=== PATIENT | female | born 1995 | race Caucasian/White ===

== ENCOUNTER 2016-03-29 20:13 | Emergency (ER) | payer OTHER ==
[~2016-03-29] VITALS: Ht 162.6 cm; Wt 88.2 kg
[~2016-03-29 20:13] MED LIST: ALBUAER2 INH; OXYC-57 PO
[2016-03-29 20:16] VITALS: TEMP 36.4; Ht 162.6 cm; Wt 88.2 kg
[2016-03-29 21:00] LABS: BASO % 0.3 %; BASO ABS # 0.02 K/uL (0-0.2); COMPLETE YES; EOS % 1.4 %; HEMATOCRIT 38.9 % (37-47); IG% 0.3 %; LYMPH ABS # 1.95 K/uL (1.2-3.4); MEAN CELL VOLUME 86.4 fL (80-100); MEAN CORPUSCULAR HEMOGLOBIN 30.2 pg (25-34); MEAN PLATELET VOLUME 10.3 fL (7.4-10.4); MONO % 9.6 %; NEUT % 61.4 %; PLATELET COUNT 193 K/uL (130-400); WHITE BLOOD COUNT 7.21 K/uL (4.8-10.8)
[2016-03-29 21:36] LABS: BUN/CREATININE RATIO 12.5 (10-20); CALCIUM 8.7 mg/dl (8.5-10.1); CREATININE 0.91 mg/dl (0.60-1.20); POTASSIUM 3.6 mmol/L (3.5-5.1)
--- NOTE | 2016-03-29 21:48 | DIAGNOSTIC IMAGING REPORT ---
FIRST TRIMESTER ULTRASOUND CLINICAL HISTORY: 8 weeks with vaginal bleeding. COMPARISON STUDY: No previous studies for comparison. TECHNIQUE: Transabdominal and transvaginal sonography of the pelvis was performed. FINDINGS: The uterus measures 9.7 x 5.5 x 7 cm. An intrauterine gestational sac is noted with a mean sac diameter of 1.7 cm. There is possible enlargement of the yolk sac. A suspected pole is noted with a crown-rump length of 0.63 cm. No cardiac activity is identified. The right ovary measures 3.4 x 2.3 x 1.5 cm and the left measures 2.6 x 2.7 x 2.2 cm. Color flow is identified within each ovary. There is no free fluid. There was no adnexal mass. IMPRESSION: Intrauterine gestational sac identified containing a suspected pole with a crown-rump length of 0.63 cm corresponding to an estimated gestational age of 6 weeks and 2 days. No cardiac activity identified although this finding is indeterminate at this gestational age and this could be due to a normal early intrauterine gestation. Possible yolk sac enlargement. Clinical follow-up, including serial beta hCG levels and ultrasound is recommended. Electronically signed by: Power Dickens M.D. 03/29/2016 9:46 PM Dictated Date/Time: 03/29/2016 9:40 PM
[2016-03-29 22:18] VITALS: BP 104/74; PULSE 74; O2SAT 100
--- NOTE | 2016-03-29 23:15 | EMERGENCY ROOM VISIT NOTE ---
History Report prepared by Sarita: Elly Pitts Under the Supervision of: Dr. Prakash Soliman M.D. First contact with patient: 20:24 Chief Complaint: VAGINAL BLEEDING Stated Complaint: POSSIBLY ,VAG BLEED History of Present Illness The patient is a 21 year old female who presents to the Emergency Room with complaints of worsening vaginal bleeding. She is currently with her second . She reports 6 days ago, she took a home test and it was positive. Earlier today, she started experiencing "spotting" which has worsened to now resembles a "full blown period". She also complains of some crampy abdominal pain and has vomited twice. She does state that she did vomit with her prior although not significantly so. The patient denies any history of PID or previous miscarriages. She does not take oral contraceptives. She denies any dysuria. She is not completely sure about her blood type. Source of History: patient Onset: Earlier today Position: other (vagina) Timing: worsening Associated Symptoms: + abdominal pain, + nausea, + vomiting, No urinary symptoms Review of Systems See HPI for pertinent positives & negatives. A total of 10 systems reviewed and were otherwise negative. Family History Diabetes mellitus Hypertension Social History Smoking Status: Never Smoker Alcohol Use: none Drug Use: none Marital Status: single Housing Status: lives with roommate Occupation Status: [employer] Current/Historical Medications Scheduled PRN Albuterol (Ventolin Hfa), 2 PUFFS INH QID PRN for SOB/Wheezing Oxycodone/Acetaminophen 5MG/325MG (Percocet 5MG/325MG), 1-2 TABS PO Q6H PRN for Pain Allergies Coded Allergies: Hydrocodone (Unverified Allergy, Mild, MOM'S ALLERGIC, 03/29/16) Ibuprofen (Verified Allergy, Mild, shacky, 03/29/16) Physical Exam Vital Signs Date Time Temp Pulse Resp B/P Pulse Ox O2 Delivery O2 Flow Rate FiO2 03/29/16 22:18 74 20 104/74 100 Room Air 03/29/16 20:16 36.4 57 18 113/72 96 Room Air Physical Exam Constitutional: Vital signs reviewed. Eyes: Pupils are equal round reactive to light. Conjunctiva are noninjected. ENT: Pharynx is clear without erythema or exudate. Mucous membranes are moist. Neck supple without meningeal signs. Respiratory: Clear to auscultation bilaterally. Breath sounds are equal bilaterally. Cardiovascular: Regular rate and rhythm. No rubs or gallops. GI: Soft, nondistended and nontender. Bowel sounds are present. Musculoskeletal: No peripheral edema. Integumentary: No cyanosis. Neurological: The patient is awake and alert. No focal deficits. Psychiatric: Normal affect. Medical Decision & Procedures ER Provider Diagnostic Interpretation: This ultrasound was reviewed and interpreted by the radiologist and reviewed by myself. FIRST TRIMESTER ULTRASOUND CLINICAL HISTORY: 8 weeks with vaginal bleeding. COMPARISON STUDY: No previous studies for comparison. TECHNIQUE: Transabdominal and transvaginal sonography of the pelvis was performed. FINDINGS: The uterus measures 9.7 x 5.5 x 7 cm. An intrauterine gestational sac is noted with a mean sac diameter of 1.7 cm. There is possible enlargement of the yolk sac. A suspected pole is noted with a crown-rump length of 0.63 cm. No cardiac activity is identified. The right ovary measures 3.4 x 2.3 x 1.5 cm and the left measures 2.6 x 2.7 x 2.2 cm. Color flow is identified within each ovary. There is no free fluid. There was no adnexal mass. IMPRESSION: Intrauterine gestational sac identified containing a suspected pole with a crown-rump length of 0.63 cm corresponding to an estimated gestational age of 6 weeks and 2 days. No cardiac activity identified although this finding is indeterminate at this gestational age and this could be due to a normal early intrauterine gestation. Possible yolk sac enlargement. Clinical follow-up, including serial beta hCG levels and ultrasound is recommended. Electronically signed by: Power Dickens M.D. 03/29/2016 9:46 PM Laboratory Results 03/29/16 20:50 Red Blood Count 4.50, Mean Corpuscular Volume 86.4, Mean Corpuscular Hemoglobin 30.2, Mean Corpuscular Hemoglobin Concent 35.0, Mean Platelet Volume 10.3, Neutrophils (%) (Auto) 61.4, Lymphocytes (%) (Auto) 27.0, Monocytes (%) (Auto) 9.6, Eosinophils (%) (Auto) 1.4, Basophils (%) (Auto) 0.3, Neutrophils # (Auto) 4.43, Lymphocytes # (Auto) 1.95, Monocytes # (Auto) 0.69, Eosinophils # (Auto) 0.10, Basophils # (Auto) 0.02 03/29/16 20:50 Test 03/29/16 20:50 White Blood Count 7.21 K/uL (4.8-10.8) Red Blood Count 4.50 M/uL (4.2-5.4) Hemoglobin 13.6 g/dL (12.0-16.0) Hematocrit 38.9 % (37-47) Mean Corpuscular Volume 86.4 fL (80-100) Mean Corpuscular Hemoglobin 30.2 pg (25-34) Mean Corpuscular Hemoglobin Concent 35.0 g/dl (32-36) Platelet Count 193 K/uL (130-400) Mean Platelet Volume 10.3 fL (7.4-10.4) Neutrophils (%) (Auto) 61.4 % Lymphocytes (%) (Auto) 27.0 % Monocytes (%) (Auto) 9.6 % Eosinophils (%) (Auto) 1.4 % Basophils (%) (Auto) 0.3 % Neutrophils # (Auto) 4.43 K/uL (1.4-6.5) Lymphocytes # (Auto) 1.95 K/uL (1.2-3.4) Monocytes # (Auto) 0.69 K/uL (0.11-0.59) Eosinophils # (Auto) 0.10 K/uL (0-0.5) Basophils # (Auto) 0.02 K/uL (0-0.2) RDW Standard Deviation 38.9 fL (36.4-46.3) RDW Coefficient of Variation 12.3 % (11.5-14.5) Immature Granulocyte % (Auto) 0.3 % Immature Granulocyte # (Auto) 0.02 K/uL (0.00-0.02) Anion Gap 9.0 mmol/L (3-11) Est Creatinine Clear Calc Drug Dose 103.4 ml/min Estimated GFR () 103.1 Estimated GFR (Non- 88.9 BUN/Creatinine Ratio 12.5 (10-20) Calcium Level 8.7 mg/dl (8.5-10.1) Human Chorionic Gonadotropin, Quant 15242 mIU/mL Laboratory results as reviewed by me. ED Course 2026: The patient was evaluated in room C5. A complete history and physical exam was performed. 2205: I reevaluated the patient. I discussed her test results and discharge instructions and she verbalized complete understanding and agreement. Medical Decision This is a 21-year-old female presents with vaginal bleeding.differential diagnosis includes threatened miscarriage, completed miscarriage, ectopic , early , uterine fibroid. I did perform a limited focused review of portions of the patient's old chart on the electronic medical record. The patient has had no recent pertinent visits to this hospital. Her blood type was identified as O+ by Dr. Camejo when she gave in June 2014. I did evaluate the patient as noted above. The patient is presenting with vaginal bleeding today. She is approximately 6 weeks by date. She denies any history of ectopic or PID. IV access was established. I did order and review the patient's blood work as noted in the electronic medical record. She is not anemic. Her beta-hCG is over 14,000. I did order an ultrasound pelvis. I did review the images myself as well as the radiology report as described above. A pole was identified. There is no evidence of ectopic . No heart rate was observed. I did discuss the test results with the patient and her . I did explain that she may simply have a very early versus a miscarriage. She will need to follow up with [facility] next week. She does not require RhoGAM as she is O+. She was discharged in condition. Impression Primary Impression: Threatened miscarriage Scribe Attestation The scribe's documentation has been prepared under my direct and personally reviewed by me in its entirety. I confirm that the note above accurately reflects all work, treatment, procedures, and medical decision making performed by me. Departure Information Dispostion Home / Self-Care Referrals No Doctor, Assigned (PCP) Patient Instructions ED Miscarriage Poss, My [facility] Additional Instructions You have been examined and treated today on an emergency basis only. This is not a substitute for, or an effort to provide, complete comprehensive medical care. It is impossible to recognize and treat all injuries or illnesses in a single emergency department visit. It is therefore important that you follow up closely with your senior telecommunications specialist next week. Call as soon as possible for an appointment. Return for worsening symptoms or if you develop fever or any other concerning symptoms. No intercourse. No tampons.
[2016-03-30] MEDS ORDERED: PRVHFAIN INH (22:22)
[2016-03-31] MEDS ORDERED: MTR600X PO (05:36)
== END 2016-03-29 22:21 | disposition home or self-care (01) ==
LOC: C.EDB 20:13 → C.EDC 22:21
DX: O20.0 Threatened abortion (principal); Z3A.01 Less than 8 weeks gestation of pregnancy

== ENCOUNTER 2016-03-30 22:01 | Day surgery (SDC) | payer OTHER ==
[~2016-03-30] VITALS: Ht 162.6 cm; Wt 88.0 kg
[~2016-03-30 22:01] MED LIST changes: -ALBUAER2 INH
[2016-03-30 22:04] VITALS: Ht 162.6 cm; Wt 88.0 kg
[2016-03-30] MEDS ORDERED: PRVHFAIN INH (22:22)
[2016-03-30] MEDS ORDERED: SODIUM CHLORIDE 0.9% 1000ML 1,000 ML IV ONE (22:45)
[2016-03-30 23:16] LABS: HEMATOCRIT 31.8 % (37-47); MEAN CELL VOLUME 86.4 fL (80-100); MEAN CORPUSCULAR HEMOGLOBIN 30.7 pg (25-34); MEAN CORPUSCULAR HGB CONC 35.5 g/dl (32-36); MEAN PLATELET VOLUME 10.1 fL (7.4-10.4); PLATELET COUNT 179 K/uL (130-400); RED BLOOD COUNT 3.68 M/uL (4.2-5.4); WHITE BLOOD COUNT 8.88 K/uL (4.8-10.8)
[2016-03-30 23:35] LABS: BUN/CREATININE RATIO 10.2 (10-20); CALCIUM 8.2 mg/dl (8.5-10.1); CREATININE 0.92 mg/dl (0.60-1.20); POTASSIUM 3.8 mmol/L (3.5-5.1)
[2016-03-30 23:37] LABS: ALB/GLOB RATIO 1.4 (0.9-2)
[2016-03-31 00:08] LABS: BASO % 0.2 %; BASO ABS # 0.02 K/uL (0-0.2); COMPLETE YES; EOS % 0.9 %; IG% 0.1 %; LYMPH % 13.7 %; LYMPH ABS # 1.22 K/uL (1.2-3.4); MONO % 6.4 %; NEUT % 78.7 %
[2016-03-31 02:27] LABS: HEMATOCRIT 30.2 % (37-47); MEAN CORPUSCULAR HEMOGLOBIN 30.5 pg (25-34); MEAN CORPUSCULAR HGB CONC 35.1 g/dl (32-36); MEAN PLATELET VOLUME 10.3 fL (7.4-10.4); PLATELET COUNT 183 K/uL (130-400); RED BLOOD COUNT 3.47 M/uL (4.2-5.4); WHITE BLOOD COUNT 9.09 K/uL (4.8-10.8)
[2016-03-31] MEDS ORDERED: LACTATED RINGER'S 1000ML 1,000 ML IV SCH (04:03)
[2016-03-31] MEDS ORDERED: SODIUM CHLORIDE 0.9% 1000ML 1,000 ML IV SCH ×2 (04:03→05:32)
[2016-03-31 04:07] VITALS: O2SAT 100
[2016-03-31] MEDS ORDERED: PROPOFOL IV EMULSION 10 MG/ML 20 ML VIAL IV ONE (04:15)
[2016-03-31] MEDS ORDERED: ONDANSETRON INJ 2 MG/ML 2 ML VIAL ONE (04:15)
[2016-03-31] MEDS ORDERED: LIDOCAINE HCL 2% 2 ML VIAL (20MG/ML) ONE (04:15)
[2016-03-31] MEDS ORDERED: FENTANYL CITRATE INJ 50 MCG/1 ML 2 ML VIAL ONE (04:15)
[2016-03-31] MEDS ORDERED: DEXAMETHASONE SOD INJ 4 MG/ML VIAL ONE (04:15)
[2016-03-31] MEDS ORDERED: MIDAZOLAM HCL 1 MG/ML 2ML VIAL ONE (04:15)
[2016-03-31] MEDS ORDERED: LACTATED RINGER'S 1000ML 1,000 ML IV PRN (04:30)
[2016-03-31] MEDS ORDERED: METOCLOPRAMIDE HCL INJ 5 MG/ML 2 ML VIAL IV PRN ×2 (04:30→05:45)
[2016-03-31] MEDS ORDERED: DiphenhydrAMINE HCL 50 MG/ML VIAL IV PRN (04:30)
--- NOTE | 2016-03-31 04:41 | History & Physical Bridge Note ---
H&P Re-Evaluation Bridge Note: I have examined the patient, reviewed the History & Physical and in the interval since the performance of the History & Physical I have noted the following changes of clinical significance: No changes noted
[2016-03-31] MEDS ORDERED: MISOPROSTOL 200 MCG TAB PR STA (04:46)
[2016-03-31] MEDS ORDERED: KETOROLAC TROMETHAMINE 30 MG/ML VIAL ONE (05:07)
[2016-03-31] MEDS ORDERED: MTR600X PO (05:36)
--- NOTE | 2016-03-31 05:37 | Discharge Instructions ---
Discharge Instructions Admission Reason for Admission: Bleeding A Lot, Stomach And Back Pain Discharge Discharge Diagnosis / Problem: incomplete at 8 weeks Discharge Goals Goal(s): Routine recovery after surgery Activity Recommendations Activity Limitations: as noted below Lifting Limitations: gradually increase as tolerated ACTIVITY RECOMMENDATIONS: * Avoid tampons, douching, hot tubs, pools, and intercourse until bleeding has stopped. * May shower as usual. * No strenuous activity for 24-48 hours. After 24-48 hours, you may do anything you feel like doing (driving and sports are okay). SPECIAL CARE INSTRUCTIONS: Special Diet: * Mild nausea may occur in the immediate post-operative period. * Take clear liquids such as tea, cola or bouillon until all nausea has subsided; you may then resume your normal diet. Special Care: * Light bleeding and vaginal spotting can last from a few days to 3-4 weeks. Call your doctor if bleeding becomes heavier than the heaviest part of your period. * Check your temperature twice a day for one week. If it goes above 100.4 degrees Fahrenheit (38.0 Celsius), notify your doctor. * Call your doctor's office for an appointment for 6 weeks after your surgery. FOLLOW-UP VISIT: Call your doctor's office for an appointment for 6 weeks after your surgery. . Current Hospital Diet Patient's current hospital diet: Discharge Diet Recommended Diet: Regular Diet Pending Studies Studies pending at discharge: no Medical Emergencies . Who to Call and When: Medical Emergencies: If at any time you feel your situation is an emergency, please call 911 immediately. . Non-Emergent Contact Non-Emergency issues call your: Specialist . . "Provider Documentation" section prepared by Carlos Sandoval. VTE Core Measure Inpt VTE Proph given/why not?: Treatment not indicated
[2016-03-31] MEDS ORDERED: ONDANSETRON INJ 2 MG/ML 2 ML VIAL IV PRN (05:45)
[2016-03-31] MEDS ORDERED: OXYCODONE/ACETAMINOPHEN 5-325 TAB PO PRN ×2 (05:45)
[2016-03-31] MEDS: FENTANYL CITRATE INJ 50 MCG/1 ML 2 ML VIAL IV PRN ×4 (05:45→06:00)
[2016-03-31] MEDS ORDERED: KETOROLAC TROMETHAMINE 30 MG/ML VIAL IV. PRN (05:45)
[2016-03-31] MEDS ORDERED: IBUPROFEN 600 MG TAB PO PRN (05:45)
--- NOTE | 2016-03-31 05:45 | [facility] Post Operative Brief Note ---
Immediate Operative Summary Operative Date Mar 31, 2016. Pre-Operative Diagnosis incomplete Post-Operative Diagnosis same Procedure(s) Performed examination under anesthesia dilation and evacuation of uterus Surgeon segun Director Of Finance Surgeon(s) none Estimated Blood Loss 50 Findings dictated Fluids (cc crystalloids) 800 Specimens products of conception Drains none Anesthesia genral Complication(s) None Disposition Surgical ICU
--- NOTE | 2016-03-31 05:45 | HISTORY & PHYSICAL EXAMINATION ---
DATE OF ADMISSION: 03/30/2016 HISTORY OF PRESENT ILLNESS: The patient is a 21-year-old, G2, P1, who is six weeks' as of yesterday. She was seen in the Emergency Room for bleeding. Diagnosis on that visit was incomplete AB. She was sent home with instructions. The patient returned today to the Emergency Room with worsening bleeding. In the Emergency Room, she was seen and evaluated. A repeat ultrasound was performed which showed gestational sac in the lower uterine segment. The patient's bleeding however has been heavy. She was getting ready for discharge. She went to the bathroom and became lightheaded. She since had some orthostatic hypotension with some syncopal episodes. GRAIN MANAGER was there for call. On evaluation of patient, the patient has had hemoglobin drop of 3 points in the last 24 hours, her blood pressure has also been in the low range, in the 70s/60s on standing. She does get very lightheaded and dizzy when she tries to stand. Speculum exam showed moderate amount of blood in the vagina. Decision was therefore made to take patient to the OR and perform a dilation and evacuation. PAST MEDICAL HISTORY: No history of diabetes, hypertension or asthma. PAST SURGICAL HISTORY: None. SOCIAL HISTORY: The patient denies tobacco, drug or alcohol use. FAMILY HISTORY: Noncontributory. OBSTETRIC/GYNECOLOGIC HISTORY: Vaginal delivery x1. PHYSICAL EXAMINATION: GENERAL: Well-developed, well-nourished white female in no acute distress. HEART: S1, S2, regular rhythm and rate. LUNGS: Clear to auscultation bilaterally. ABDOMEN: Nontender and nondistended. PELVIC: Moderate amount of blood in the vagina. ASSESSMENT AND PLAN: Incomplete at 6 weeks' plus. The patient has had some syncope and hypotension on standing. Decision was therefore made to perform dilation and evacuation of uterus. The patient has agreed, discussed risks of surgery versus expectant management. Consent is signed. Plan is to proceed to the OR. BOB
--- NOTE | 2016-03-31 06:04 | Anesthesiology Progress Note ---
Anesthesia Post Op Note Date & Time Mar 31, 2016 at 06:02 Vital Signs Pain Intensity: 3 Vital Signs Past 12 Hours Date Time Temp Pulse Resp B/P Pulse Ox O2 Delivery O2 Flow Rate FiO2 03/31/16 06:00 72 14 116/45 100 Room Air 03/31/16 05:50 64 14 107/51 100 Mask 10 03/31/16 05:40 85 14 101/49 100 Mask 10 03/31/16 05:31 36.3 87 14 110/59 100 Mask 10 03/31/16 04:07 94 18 111/58 100 Room Air 03/31/16 02:00 68 18 111/67 79/31 120/111 03/31/16 01:49 65 18 107/53 98 03/31/16 01:12 68 18 106/51 100 Room Air 03/31/16 00:50 68 03/31/16 00:41 67 18 84/42 97 Room Air 03/30/16 22:04 36.6 104 18 122/73 98 Room Air Notes Mental Status: alert / awake / arousable, participated in evaluation Pt Amnestic to Procedure: Yes Nausea / Vomiting: adequately controlled Pain: adequately controlled Airway Patency, RR, SpO2: stable & adequate BP & HR: stable & adequate Hydration State: stable & adequate Anesthetic Complications: no major complications apparent Pt doing very well. Of note, Dr. Sandoval dictated an H&P. It was not yet in the computer, so the DOMESTIC MAID called to have it transcribed stat. Due to the urgent nature of the procure (symptomatic bleeding), we elected to proceed to the OR.
--- NOTE | 2016-03-31 06:09 | OPERATIVE REPORT ---
DATE OF OPERATION: 03/31/2016 INDICATION FOR PROCEDURE: This is a 21-year-old at 8 weeks gestation, who is experiencing heavy bleeding. PREOPERATIVE DIAGNOSES: 1. at 8 weeks. 2. Incomplete spontaneous . POSTOPERATIVE DIAGNOSES: Same. PROCEDURES: 1. Examination under anesthesia. 2. Dilation and evacuation of uterus with suction. SURGEON: Carlos Sandoval M.D. DIRECTOR OF MARKET RESEARCH: None. ANESTHESIA: Dr. Mejia. ESTIMATED BLOOD LOSS: 50 mL. URINE: 400 mL clear urine at the end of the procedure. IV FLUIDS: 700 mL. FINDINGS: Normal female escutcheon. No lesions in the vagina or cervix. There was a moderate amount of blood in the vagina. Moderate amount of tissue was evacuated from the uterus. SPECIMEN: Products of conception. DRAINS: None. ANESTHESIA: General. COMPLICATIONS: None. DISPOSITION: Stable to recovery room. DESCRIPTION OF PROCEDURE: The patient was taken to the operating room where she was prepped and draped in normal sterile fashion in dorsal lithotomy position after time-out was called. Bladder was catheterized and 400 mL of clear urine was obtained. Heavy weighted speculum was placed in the vagina. A Damon retractor was used to retract the anterior part of the vagina. A single-tooth tenaculum was used to grab the anterior part of the cervix. Cervix was dilated to a size 24. A size 8 curved suction was introduced into the uterine cavity and suction curettage performed. Moderate amount of products was seen coming through the suction. The suction was removed and a sharp curette size 3 gently introduced in the uterine cavity. Curettage was performed in all 4 quadrants with a gritty texture was obtained in all 4 quadrants. The sharp curette was removed and the suction curette was reintroduced in the uterine cavity, more suction was performed. There were no more products of conception coming through the suction. There was good hemostasis at this time in the procedure. All instruments were removed from the vagina and uterus including the sharp curette, the suction, the single-tooth tenaculum and sponges and accounted for x2. The patient is doing well and sent to recovery in stable condition. I attest to the content of the Intraoperative Record and any orders documented therein. Any exceptions are noted below. BOB
[2016-03-31 06:11] VITALS: BP 118/68; PULSE 78; TEMP 36.5; O2SAT 100
--- NOTE | 2016-03-31 06:12 | EMERGENCY ROOM VISIT NOTE ---
History First contact with patient: 22:21 Chief Complaint: ED VAG BLEEDING Stated Complaint: BLEEDING A LOT, STOMACH AND BACK PAIN History of Present Illness The patient is a 21 year old female who presents to the Emergency Room with complaints of worsening vaginal bleeding over the past one day. The patient was initially seen and evaluated in the ER yesterday for this complaint. Her hCG quantitative was roughly 14,000 and ultrasound did show an intrauterine gestation. No heart activity was noted on ultrasound yesterday. The patient states that she was feeling well at the time of discharge yesterday, however over the past 12 hours she has had worsening bleeding. She states that she is passing larger clots and yesterday. She has had to change her pad several times today. The patient states that she had a near syncopal episode at home about 30 minutes ago where she felt very lightheaded. She was able to sit down and stop her symptoms. She now presents to the ER for evaluation again of her symptoms. She has not had fever or chills. She has not taken anything at home for her symptoms which she currently rates a 9/10. Review of Systems More than 10 systems were reviewed and otherwise negative with the exception of history of present illness. Past Medical/Surgical History History of asthma Family History Diabetes mellitus Hypertension Social History Smoking Status: Never Smoker Alcohol Use: none Drug Use: none Marital Status: single Housing Status: lives with roommate Occupation Status: [employer] Current/Historical Medications Scheduled PRN Albuterol (Ventolin Hfa), 2 PUFFS INH QID PRN for SOB/Wheezing Allergies Coded Allergies: Hydrocodone (Unverified Allergy, Mild, MOM'S ALLERGIC, 03/29/16) Ibuprofen (Verified Allergy, Mild, shacky, 03/29/16) Physical Exam Vital Signs Date Time Temp Pulse Resp B/P Pulse Ox O2 Delivery O2 Flow Rate FiO2 03/31/16 04:07 94 18 111/58 100 Room Air 03/31/16 02:00 68 18 111/67 79/31 120/111 03/31/16 01:49 65 18 107/53 98 03/31/16 01:12 68 18 106/51 100 Room Air 03/31/16 00:50 68 03/31/16 00:41 67 18 84/42 97 Room Air 03/30/16 22:04 36.6 104 18 122/73 98 Room Air Pain Rating (0-10): 0 Physical Exam VITALS: Vitals are noted on the nurse's note and reviewed by myself. Vital signs stable. GENERAL: Well-developed, well-nourished, white female, who is in no acute distress and resting comfortably. Patient is cooperative with the examination. HEAD: Normocephalic atraumatic. HEART: Regular rate and rhythm without murmurs gallops or rubs. LUNGS: Clear to auscultation bilaterally without wheezes, rales or rhonchi. No retractions or accessory muscle use. ABDOMEN: Positive normal bowel sounds x 4. Soft, nontender, without masses or organomegaly. No guarding or rebound tenderness. MUSCULOSKELETAL: No muscle atrophy, erythema, or edema noted. Full range of motion without joint tenderness in all extremities. Medical Decision & Procedures ER Provider Diagnostic Interpretation: Preliminary Findings Only See Final Report For Complete Findings US PELVIC/OB: Comparison 03/29/2016 Patient declined transvaginal imaging The saclike structure is now seen in the lower uterine segment/endocervical canal measuring up to 1.6 cm concerning for AB in progress. No pole identified at this time. Heterogeneous appearing endometrial stripe suggesting possible blood products Ovaries appear within limits No evidence of adnexal mass Laboratory Results 03/31/16 02:21 03/30/16 23:05 Test 03/30/16 23:05 03/31/16 02:21 Immature Granulocyte % (Auto) 0.1 % White Blood Count 8.88 K/uL (4.8-10.8) Red Blood Count 3.68 M/uL (4.2-5.4) 3.47 M/uL (4.2-5.4) Hemoglobin 11.3 g/dL (12.0-16.0) Hematocrit 31.8 % (37-47) Mean Corpuscular Volume 86.4 fL (80-100) 87.0 fL (80-100) Mean Corpuscular Hemoglobin 30.7 pg (25-34) 30.5 pg (25-34) Mean Corpuscular Hemoglobin Concent 35.5 g/dl (32-36) 35.1 g/dl (32-36) Platelet Count 179 K/uL (130-400) Mean Platelet Volume 10.1 fL (7.4-10.4) 10.3 fL (7.4-10.4) Neutrophils (%) (Auto) 78.7 % Lymphocytes (%) (Auto) 13.7 % Monocytes (%) (Auto) 6.4 % Eosinophils (%) (Auto) 0.9 % Basophils (%) (Auto) 0.2 % Neutrophils # (Auto) 6.98 K/uL (1.4-6.5) Lymphocytes # (Auto) 1.22 K/uL (1.2-3.4) Monocytes # (Auto) 0.57 K/uL (0.11-0.59) Eosinophils # (Auto) 0.08 K/uL (0-0.5) Basophils # (Auto) 0.02 K/uL (0-0.2) Immature Granulocyte # (Auto) 0.01 K/uL (0.00-0.02) Anion Gap 9.0 mmol/L (3-11) Est Creatinine Clear Calc Drug Dose 102.2 ml/min Estimated GFR () 101.7 Estimated GFR (Non- 87.8 BUN/Creatinine Ratio 10.2 (10-20) Calcium Level 8.2 mg/dl (8.5-10.1) Total Bilirubin 0.3 mg/dl (0.2-1) Aspartate Amino Transf (AST/SGOT) 11 U/L (15-37) Alanine Aminotransferase (ALT/SGPT) 16 U/L (12-78) Alkaline Phosphatase 54 U/L (45-117) Total Protein 6.3 gm/dl (6.4-8.2) Albumin 3.7 gm/dl (3.4-5.0) Globulin 2.6 gm/dl (2.5-4.0) Albumin/Globulin Ratio 1.4 (0.9-2) Human Chorionic Gonadotropin, Quant 6985 mIU/mL RDW Standard Deviation 38.9 fL (36.4-46.3) RDW Coefficient of Variation 12.4 % (11.5-14.5) Medications Administered Medications (Trade) Dose Ordered Sig/Shanel Route Start Time Stop Time Status Last Admin Dose Admin Sodium Chloride (Nss 1000ml) 1,000 ml @ 999 mls/hr Q1H1M ONCE IV 03/30/16 22:45 03/30/16 23:45 DC 03/30/16 23:05 999 MLS/HR ED Course Physical exam and history were performed. Nursing notes and EMR were reviewed. Patient appears to have persistent vaginal bleeding in the first trimester of . The patient reportedly is worse today than yesterday. On examination she does not appear toxic and does not have significant abdominal pain on palpation. Because of the continued nature of her symptoms IV access was established and labs were obtained. I did elect to perform a repeat ultrasound as I have concern the patient may have a miscarriage in process. The patient's blood work is as above and was reviewed. Her hemoglobin has dropped from 13.6 yesterday to 11.3 today. She does not have a significant electrolyte imbalance or elevated white blood cell count. Her quantitative hCG has dropped from 14,000 to essentially 7000. Her ultrasound was read by Kyung , and she appears to have an incomplete . The patient was monitored for several hours here in the emergency department. She stated that she was feeling well, and was initially felt stable for discharge. Discharge paperwork was completed, however the patient became lightheaded when she stood up to use the bathroom. The patient was able to use the bathroom without a full syncopal episode, and then sit back in her bed. We monitored her for another 45 minutes, and hydrated her by mouth as we had discontinued her IV. She again stated that she felt well for discharge home. The patient again stood from her bed and was only able to ambulate a few feet, before she had another near syncopal episode. At this point a second IV was placed and the patient was returned to her room. She was found hypotensive, and was now much more pale than she was on original presentation. A repeat hemoglobin was performed, and showed another drop in her hemoglobin. Orthostatics were performed, and she was orthostatic and quite symptomatic. Because of the patient's worsening symptomatic nature, I did speak with [employer] Dr Sandoval who agreed to evaluate the patient here in the emergency department. Dr Sandoval will take the patient to the OR for definitive care. Please see his dictation for full specifics regarding his evaluation. The patient was pleased with this plan and was discharged to the operating room suite. The chart was completed utilizing [employer] Voice Recognition Software. Grammatical errors, random word insertions, pronoun errors, and incomplete sentences are an occasional consequence of this system due to software limitations, ambient noise, and hardware issues. Any formal questions or concerns about the content, text, or information contained within the body of this dictation should be directly addressed to the provider for clarification. . Medical Decision Differential diagnosis: Etiologies such as ectopic , dysfunction uterine bleeding, bleeding dyscrasia, trauma, infection, as well as others were entertained. Impression Primary Impression: Incomplete miscarriage Additional Impression: Near syncope Departure Information Dispostion Admitted as an inpatient Condition GOOD Forms HOME CARE DOCUMENTATION FORM, IMPORTANT VISIT INFORMATION Patient Instructions [facility] Problem Qualifiers
[2016-03-31 07:00] VITALS: BP 112/60; PULSE 80; TEMP 36.5; O2SAT 100
--- NOTE | 2016-03-31 07:05 | DIAGNOSTIC IMAGING REPORT ---
PELVIC ULTRASOUND CLINICAL HISTORY: Persistent vaginal bleed in 6wk COMPARISON STUDY: ultrasound March 29, 2016. TECHNIQUE: Transabdominal sonography of the pelvis was performed. Transvaginal imaging was deferred in this patient. FINDINGS: The uterus measures 10.3 x 5.1 x 6.2 cm. The endometrium is heterogeneous, measuring 7 mm in thickness. There is a cystic structure now within the lower uterine segment measuring 1.6 x 1.4 x 1.3 cm. The appearance has changed since exam of March 29, 2016. No pole is identified on this examination. The right ovary measures 3.1 x 2.2 x 1.6 cm and left measures 3.1 x 1.9 x 2.2 cm. There are SPECT blood products within the cervix. The cervix appears open. IMPRESSION: 1. 1.6 cm cystic structure now within the lower uterine segment with interval change since exam of March 29, 2016. No pole identified. The findings suggest a spontaneous in progress. 2. Heterogeneous endometrium and complex material within the cervix which likely reflect blood products. Electronically signed by: Power Dickens M.D. 03/31/2016 7:03 AM Dictated Date/Time: 03/31/2016 6:59 AM
== END 2016-03-31 | disposition home or self-care (01) ==
LOC: C.EDB 22:03 → C.ACU 03-31 04:00 → C.EDB 03-31 04:30
PROVIDERS: ATTEND Obstetrics & Gynecology
DX: O03.4 Incomplete spontaneous abortion without complication (principal); R55 Syncope and collapse; J45.909 Unspecified asthma, uncomplicated; Z98.890 Other specified postprocedural states; E66.9 Obesity, unspecified; Z68.33 Body mass index [BMI] 33.0-33.9, adult; Z83.3 Family history of diabetes mellitus; Z82.49 Family history of ischemic heart disease and other diseases of the circulatory system

== ENCOUNTER 2016-09-13 23:37 | Emergency (ER) | payer OTHER ==
[~2016-09-13] VITALS: Ht 162.6 cm; Wt 89.4 kg
[~2016-09-13 23:37] MED LIST changes: +MTR600X PO; -OXYC-57 PO; +PRVHFAIN INH
[2016-09-13 23:40] VITALS: TEMP 36.5; Ht 162.6 cm; Wt 89.4 kg
--- NOTE | 2016-09-14 00:02 | EMERGENCY ROOM VISIT NOTE ---
History Report prepared by Sarita: Kobe Blanco Under the Supervision of: Dr. Veronique Wilson D.O. First contact with patient: 23:46 Chief Complaint: ABDOMINAL PAIN Stated Complaint: BAD STOMACH PAIN,SHARP History of Present Illness The patient is a 21 year old female who presents to the Emergency Room with complaints of constant sharp lower abdominal pain that started at 1430 today. She rates her pain as a 5/10 in severity. The patient states that she was moving out of her house a week ago when she started to experience to feel a "hard feeling" and "fluttering" sensation in her abdomen. She reports that she has been experiencing nausea, fatigue, and general soreness since. The patient states that she was concerned for , which prompted her to take two tests that showed negative results. She admits to an odor to her urine and states that she had a burning sensation in her genital area earlier this week. No vaginal discharge reported. The patient states that she followed up with her PCP for her symptoms who told her it was due to a sensitivity of detergents. She admits to an occurrence of a miscarriage that occurred in March. The patient denies any change in diet or medication, change in bowel movements, vomiting, cough, cold symptoms, being around someone sick, back pain. Source of History: patient Onset: 1430 Position: abdomen Symptom Intensity: 5/10 Quality: sharp Timing: constant Associated Symptoms: + nausea, + urinary symptoms, + fatigue, No cough, No vomiting, No back pain Review of Systems See HPI for pertinent positives & negatives. A total of 10 systems reviewed and were otherwise negative. Past Medical & Surgical Medical Problems: (1) Asthma (2) Bronchitis (3) Emphysema of lung Family History Diabetes mellitus Hypertension Social History Smoking Status: Never Smoker Alcohol Use: none Drug Use: none Marital Status: single Housing Status: lives with roommate Occupation Status: [employer] student Current/Historical Medications Scheduled Cephalexin (Keflex), 1 CAP PO BID Allergies Coded Allergies: Hydrocodone (Unverified Allergy, Mild, MOM'S ALLERGIC, 09/14/16) Ibuprofen (Verified Allergy, Mild, shacky, 09/14/16) Physical Exam Vital Signs Date Time Temp Pulse Resp B/P (MAP) Pulse Ox O2 Delivery O2 Flow Rate FiO2 09/14/16 01:52 78 18 121/69 98 09/13/16 23:40 36.5 81 18 126/76 99 Room Air Physical Exam GENERAL: alert, well appearing, well nourished, no distress, non-toxic EYE EXAM: normal conjunctiva, PERRL and EOM's grossly intact OROPHARYNX: no exudate, no erythema, lips, buccal mucosa, and tongue normal and mucous membranes are moist NECK: supple, no nuchal rigidity, no adenopathy, non-tender LUNGS: Clear to auscultation. Normal chest wall mechanics HEART: no murmurs, S1 normal and S2 normal ABDOMEN: Abdominal tenderness not reproducible, abdomen soft, non-tender, normo- active bowel sounds, no masses, no rebound or guarding. BACK: Back is symmetrical on inspection and there is no deformity, no midline tenderness, no CVA tenderness. SKIN: no rashes and no bruising UPPER EXTREMITIES: upper extremities are grossly normal. LOWER EXTREMITIES: No pitting edema. NEURO EXAM: Normal sensorium, cranial nerves II-XII grossly intact, normal speech, no gross weakness of arms, no gross weakness of legs. No drift. Finger to nose intact. Gross sensation intact. Medical Decision & Procedures ER Provider Diagnostic Interpretation: Radiology results have been interpreted and reviewed by me. Chest Xray One View Upright Portable: No cardiomegaly, no pleural effusion, no wide medial sternum no focal deficit. Abdomen x-ray: No definitive SBO, No free air, scattered stool. Laboratory Results 09/14/16 00:05 Red Blood Count 4.52, Mean Corpuscular Volume 79.4, Mean Corpuscular Hemoglobin 25.4, Mean Corpuscular Hemoglobin Concent 32.0, Mean Platelet Volume 10.3, Neutrophils (%) (Auto) 60.4, Lymphocytes (%) (Auto) 28.6, Monocytes (%) (Auto) 9.5, Eosinophils (%) (Auto) 1.1, Basophils (%) (Auto) 0.3, Neutrophils # (Auto) 4.30, Lymphocytes # (Auto) 2.04, Monocytes # (Auto) 0.68, Eosinophils # (Auto) 0.08, Basophils # (Auto) 0.02 09/14/16 00:05 Test 09/13/16 23:58 09/14/16 00:05 Urine Color YELLOW Urine Appearance CLOUDY (CLEAR) Urine pH 6.5 (4.5-7.5) Urine Specific [place] 1.030 (1.000-1.030) Urine Protein NEG (NEG) Urine Glucose (UA) NEG (NEG) Urine Ketones NEG (NEG) Urine Occult Blood NEG (NEG) Urine Nitrite POS (NEG) Urine Bilirubin NEG (NEG) Urine Urobilinogen NEG (NEG) Urine Leukocyte Esterase SMALL (NEG) Urine WBC (Auto) 10-30 /hpf (0-5) Urine RBC (Auto) 0-4 /hpf (0-4) Urine Hyaline Casts (Auto) 1-5 /lpf (0-5) Urine Epithelial Cells (Auto) >30 /lpf (0-5) Urine Bacteria (Auto) 4+ (NEG) White Blood Count 7.13 K/uL (4.8-10.8) Red Blood Count 4.52 M/uL (4.2-5.4) Hemoglobin 11.5 g/dL (12.0-16.0) Hematocrit 35.9 % (37-47) Mean Corpuscular Volume 79.4 fL (80-100) Mean Corpuscular Hemoglobin 25.4 pg (25-34) Mean Corpuscular Hemoglobin Concent 32.0 g/dl (32-36) Platelet Count 190 K/uL (130-400) Mean Platelet Volume 10.3 fL (7.4-10.4) Neutrophils (%) (Auto) 60.4 % Lymphocytes (%) (Auto) 28.6 % Monocytes (%) (Auto) 9.5 % Eosinophils (%) (Auto) 1.1 % Basophils (%) (Auto) 0.3 % Neutrophils # (Auto) 4.30 K/uL (1.4-6.5) Lymphocytes # (Auto) 2.04 K/uL (1.2-3.4) Monocytes # (Auto) 0.68 K/uL (0.11-0.59) Eosinophils # (Auto) 0.08 K/uL (0-0.5) Basophils # (Auto) 0.02 K/uL (0-0.2) RDW Standard Deviation 47.5 fL (36.4-46.3) RDW Coefficient of Variation 16.4 % (11.5-14.5) Immature Granulocyte % (Auto) 0.1 % Immature Granulocyte # (Auto) 0.01 K/uL (0.00-0.02) Anion Gap 6.0 mmol/L (3-11) Est Creatinine Clear Calc Drug Dose 103.0 ml/min Estimated GFR () 101.7 Estimated GFR (Non- 87.8 BUN/Creatinine Ratio 15.6 (10-20) Calcium Level 8.8 mg/dl (8.5-10.1) Total Bilirubin 0.2 mg/dl (0.2-1) Aspartate Amino Transf (AST/SGOT) 12 U/L (15-37) Alanine Aminotransferase (ALT/SGPT) 20 U/L (12-78) Alkaline Phosphatase 79 U/L (45-117) Total Protein 6.8 gm/dl (6.4-8.2) Albumin 3.9 gm/dl (3.4-5.0) Globulin 2.9 gm/dl (2.5-4.0) Albumin/Globulin Ratio 1.3 (0.9-2) Lipase 121 U/L (73-393) Human Chorionic Gonadotropin, Qual NEG (NEG) Laboratory results per my review. Medications Administered Medications (Trade) Dose Ordered Sig/Shanel Route Start Time Stop Time Status Last Admin Dose Admin Cephalexin Monohydrate (Keflex Cap) 500 mg NOW ONCE PO 09/14/16 00:45 09/14/16 00:46 DC 09/14/16 00:59 500 MG Phenazopyridine HCl (Pyridium Tab) 200 mg NOW STAT PO 09/14/16 00:45 09/14/16 00:46 DC 09/14/16 01:00 200 MG ED Course 1151: The patient was evaluated in room A10. A complete history and physical exam was performed. 0045: Pyridium Tab 200 mg PO, Keflex Cap 500 mg PO. 0138: Upon reevaluation, the patient is feeling better. I discussed the findings and the treatment plan with the patient. She verbalizes agreement and understanding. The patient was discharged home. Medical Decision Differential diagnoses includes but is not limited to gastritis, peptic ulcer disease, GERD, gallbladder disease, pancreatitis, small bowel obstruction, acute coronary syndrome, pericarditis, ischemic bowel, irritable bowel disease, irritable bowel syndrome, appendicitis, diverticulitis, malignancy, hernia, urinary tract infection, torsion, /ectopic , perforation, trauma, infectious. Pt well appearing here, labs reassuring, imaging reassuring. UTI noted. Likely cause of pt's symptoms. Doubt additional GI or pathology. No sx to suggest stone or pyelo. Discussed with pt hydration, antibiotics, sx to watch/ return for, she verbalized understanding and was agreeable with plan. Medication Reconcilliation Current Medication List: was personally reviewed by me Blood Pressure Screening Patient's blood pressure: Elevated blood pressure Blood pressure disposition: Elevated BP felt to be situational Impression Primary Impression: UTI (urinary tract infection) Additional Impression: Lower abdominal pain Scribe Attestation The scribe's documentation has been prepared under my direction and personally reviewed by me in its entirety. I confirm that the note above accurately reflects all work, treatment, procedures, and medical decision making performed by me. Departure Information Dispostion Home / Self-Care Prescriptions Cephalexin (KEFLEX) 500 Mg Cap 1 CAP PO BID for 7 Days, #14 CAP Prov: Veronique Wilson, DO 09/14/16 Referrals Sita Jefferson D.OLalo (PCP) Forms HOME CARE DOCUMENTATION FORM, IMPORTANT VISIT INFORMATION Patient Instructions My [facility] Additional Instructions Please take the antibiotic as prescribed. Please drink plenty of water. If you have any worsening abdominal pain, develop fevers/chills, nausea/vomiting, back pain, dizziness, or you have any other new or concerning symptoms, please return to the emergency room. Problem Qualifiers Primary Impression: UTI (urinary tract infection) Urinary tract infection type: acute cystitis Hematuria presence: without hematuria Qualified Codes: N30.00 - Acute cystitis without hematuria
[2016-09-14 00:25] LABS: BASO % 0.3 %; BASO ABS # 0.02 K/uL (0-0.2); COMPLETE YES; EOS % 1.1 %; HEMATOCRIT 35.9 % (37-47); IG% 0.1 %; LYMPH % 28.6 %; LYMPH ABS # 2.04 K/uL (1.2-3.4); MEAN CELL VOLUME 79.4 fL (80-100); MEAN CORPUSCULAR HEMOGLOBIN 25.4 pg (25-34); MEAN PLATELET VOLUME 10.3 fL (7.4-10.4); MONO % 9.5 %; NEUT % 60.4 %; PLATELET COUNT 190 K/uL (130-400); RED BLOOD COUNT 4.52 M/uL (4.2-5.4); WHITE BLOOD COUNT 7.13 K/uL (4.8-10.8)
[2016-09-14 00:29] LABS: URINE APPEARANCE CLOUDY (CLEAR); URINE BILIRUBIN NEG (NEG); URINE COLOR YELLOW; URINE EPITHELIAL CELL AUTO >30 /lpf (0-5); URINE NITRITE POS (NEG); URINE PH 6.5 (4.5-7.5); UROBILINOGEN NEG (NEG); ZZUR CULT IF INDIC CLEAN CATCH YES
[2016-09-14 00:35] LABS: MANUAL MICROSCOPIC REQUIRED? NO; REVIEW REQ? NO
[2016-09-14 00:39] LABS: PREG INTERNAL NEGATIVE QC NEG CLEAR BACKGROUND; PREG INTERNAL POSITIVE QC POS CONTROL LINE
[2016-09-14 00:43] LABS: BUN/CREATININE RATIO 15.6 (10-20); CALCIUM 8.8 mg/dl (8.5-10.1); CREATININE 0.92 mg/dl (0.60-1.20); POTASSIUM 3.6 mmol/L (3.5-5.1)
[2016-09-14 00:45] LABS: ALB/GLOB RATIO 1.3 (0.9-2)
[2016-09-14] MEDS ORDERED: PHENAZOPYRIDINE HCL 200 MG TAB PO STA (00:45)
[2016-09-14] MEDS ORDERED: CEPHALEXIN MONOHYDRATE 250 MG CAP PO ONE (00:45)
[2016-09-14] MEDS ORDERED: CEPH-571 PO (01:43)
[2016-09-14 01:52] VITALS: BP 121/69; PULSE 78; O2SAT 98
--- NOTE | 2016-09-14 06:50 | DIAGNOSTIC IMAGING REPORT ---
PA CHEST RADIOGRAPH AND UPRIGHT AND SUPINE AP RADIOGRAPHS OF THE ABDOMEN CLINICAL HISTORY: Lower abdominal pain. COMPARISON STUDY: Chest radiograph October 14, 2007 FINDINGS: Lung volumes are normal. Lungs are clear. There is no pneumothorax or pleural effusion. Cardiac size is normal. Mediastinal contours are normal. There is no evidence of pulmonary edema. There is no free air. The bowel gas pattern is normal. There is a moderate amount of stool within the colon. IMPRESSION: 1. No free air or evidence of bowel obstruction. 2. No acute cardiopulmonary findings. Electronically signed by: Power Dickens M.D. 09/14/2016 6:49 AM Dictated Date/Time: 09/14/2016 6:48 AM
--- NOTE | 2016-09-16 12:49 | Pharmacy Progress Note ---
ED Pharmacist Culture FollowUp Date of Service: Sep 16, 2016. Patient was sent home with a prescription for cephalexin, which should cover the E. coli growing from the patient's urine culture based on reported sensitivity to cefazolin.
== END 2016-09-14 01:53 | disposition home or self-care (01) ==
LOC: C.EDB 23:38 → C.EDA 09-14 01:53
DX: N39.0 Urinary tract infection, site not specified (principal); J45.909 Unspecified asthma, uncomplicated; J43.9 Emphysema, unspecified; Z83.3 Family history of diabetes mellitus; Z82.49 Family history of ischemic heart disease and other diseases of the circulatory system

== ENCOUNTER 2016-10-18 20:31 | Emergency (ER) | payer OTHER ==
[~2016-10-18] VITALS: Ht 162.6 cm; Wt 90.8 kg
[2016-10-18 20:38] VITALS: TEMP 36.6; Ht 162.6 cm; Wt 90.8 kg
[2016-10-18 21:22] LABS: URINE APPEARANCE CLOUDY (CLEAR); URINE BILIRUBIN NEG (NEG); URINE COLOR YELLOW; URINE EPITHELIAL CELL AUTO >30 /lpf (0-5); URINE NITRITE NEG (NEG); URINE PH 7.5 (4.5-7.5); URINE SPECIFIC GRAVITY 1.029 (1.000-1.030); UROBILINOGEN NEG (NEG); ZZUR CULT IF INDIC CLEAN CATCH YES
[2016-10-18 21:23] LABS: MANUAL MICROSCOPIC REQUIRED? NO; REVIEW REQ? NO
[2016-10-18 21:25] LABS: SULFASALICYLIC ACID POS (NEG)
[2016-10-18] MEDS ORDERED: SEPTRA DS HOME PACK 1 EA VIAL PO ONE (21:30)
[2016-10-18] MEDS ORDERED: SULF800T23 PO (21:34)
[2016-10-18 21:41] VITALS: BP 121/63; PULSE 69; O2SAT 98
--- NOTE | 2016-10-18 21:49 | EMERGENCY ROOM VISIT NOTE ---
History First contact with patient: 20:51 Chief Complaint: ABDOMINAL PAIN Stated Complaint: SHARP PAINS IN SIDE LOWER STOMACH AND PELVIC AREA History of Present Illness The patient is a 21 year old female who presents to the Emergency Room with complaints of very low abdominal/pelvic pain for the past 7 days. The patient thought that she may be , and took 2 tests at home which were both negative. She has not had fever or chills. She has been eating and drinking as normal. She does not report changes in using the bathroom. She is not having vaginal drainage, discharge, or bleeding. She does not believe that she is at risk for STDs as she is in a mutually monogamous relationship. She rates her discomfort a very dull 2/10. Review of Systems More than 10 systems were reviewed and otherwise negative with the exception of history of present illness. Past Medical/Surgical History Medical Problems: (1) Asthma (2) Bronchitis (3) Emphysema of lung Family History Diabetes mellitus Hypertension Social History Smoking Status: Never Smoker Alcohol Use: none Drug Use: none Marital Status: single Housing Status: lives with roommate Occupation Status: [employer] student Current/Historical Medications Scheduled Sulfamethoxazole-Trimethoprim (Bactrim Ds 800MG/160MG), 1 TAB PO BID Physical Exam Vital Signs Date Time Temp Pulse Resp B/P (MAP) Pulse Ox O2 Delivery O2 Flow Rate FiO2 10/18/16 21:41 69 16 121/63 98 10/18/16 20:38 36.6 79 18 128/79 97 Room Air Pain Rating (0-10): 2.0 Physical Exam VITALS: Vitals are noted on the nurse's note and reviewed by myself. Vital signs stable. GENERAL: Well-developed, well-nourished, white female, who is in no acute distress and resting comfortably. Patient is cooperative with the examination. HEAD: Normocephalic atraumatic. HEART: Regular rate and rhythm without murmurs gallops or rubs. LUNGS: Clear to auscultation bilaterally without wheezes, rales or rhonchi. No retractions or accessory muscle use. ABDOMEN: Positive normal bowel sounds x 4. Soft with very slight suprapubic tenderness on palpation. No rebound or guarding. No CVA tenderness. No other point tenderness noted. MUSCULOSKELETAL: No muscle atrophy, erythema, or edema noted. Full range of motion without joint tenderness in all extremities. Medical Decision & Procedures Laboratory Results Test 10/18/16 20:15 Urine Color YELLOW Urine Appearance CLOUDY (CLEAR) Urine pH 7.5 (4.5-7.5) Urine Specific Stewart 1.029 (1.000-1.030) Urine Protein TRACE (NEG) Urine Glucose (UA) NEG (NEG) Urine Ketones NEG (NEG) Urine Occult Blood NEG (NEG) Urine Nitrite NEG (NEG) Urine Bilirubin NEG (NEG) Urine Urobilinogen NEG (NEG) Urine Leukocyte Esterase SMALL (NEG) Urine WBC (Auto) 10-30 /hpf (0-5) Urine RBC (Auto) 0-4 /hpf (0-4) Urine Hyaline Casts (Auto) 5-10 /lpf (0-5) Urine Epithelial Cells (Auto) >30 /lpf (0-5) Urine Bacteria (Auto) 1+ (NEG) Urine Test NEG (NEG) Medications Administered Medications (Trade) Dose Ordered Sig/Shanel Route Start Time Stop Time Status Last Admin Dose Admin Trimethoprim/ Sulfamethoxazole (Sulfameth/ Trimeth Ds 800/ 160MG Home Pack) 1 homepack UD ONCE PO 10/18/16 21:30 10/18/16 21:31 DC 10/18/16 21:41 1 HOMEPACK ED Course Physical exam and history were performed. Nursing notes, EMR, and Medication List were personally reviewed. Patient appears to have suprapubic abdominal tenderness for about the past week. The patient certainly does not appear toxic on examination. Urine was collected and is highly suspicious of UTI. Her is negative. Clinically this does correlate the most with the patient's symptoms. I discussed the possibility of other etiologies such as yeast infection, STD, vaginal infection, appendicitis, and others. The patient feels comfortable with antibiotic treatment for the UTI and following up with her family care physician. If she has any worsening of her symptoms she was certainly invited back to the ER for possible pelvic exam or CT imaging/ultrasound. The patient was discharged home under the care of her significant other and rated her discomfort a 1/10 at the time of departure. The chart was completed utilizing [employer] Voice [employer]ognition Software. Grammatical errors, random word insertions, pronoun errors, and incomplete sentences are an occasional consequence of this system due to software limitations, ambient noise, and hardware issues. Any formal questions or concerns about the content, text, or information contained within the body of this dictation should be directly addressed to the provider for clarification. . Medical Decision Differential diagnosis: Etiologies such as appendicitis, diverticulitis, PUD, biliary pathology, UTI, pancreatitis, obstruction, mesenteric ischemia, aortic pathology, infections, inflammatory bowel disease, renal colic, as well as others were entertained. Medication Reconcilliation Current Medication List: was personally reviewed by me Blood Pressure Screening Patient's blood pressure: Normal blood pressure Impression Primary Impression: UTI (urinary tract infection) Departure Information Dispostion Home / Self-Care Condition GOOD Prescriptions Sulfamethoxazole-Trimethoprim (Bactrim Ds 800MG/160MG) 1 Tab Tab 1 TAB PO BID for 6 Days, #12 TAB Prov: Denis Young PA-C 10/18/16 Forms HOME CARE DOCUMENTATION FORM, IMPORTANT VISIT INFORMATION Patient Instructions My [facility] Additional Instructions You were seen and evaluated today on an emergency basis only. This is not a substitute for, or an effort to provide, complete comprehensive medical care. It is not possible to recognize and treat all injuries or illnesses in a single emergency department visit. For this reason it is recommended that you followup with your primary care physician next week if symptoms persist. Trimethoprim-Sulfamethoxazole(Bactrim DS): Take one pill twice daily for 7 total days for your urine infection. All antibiotics can cause diarrhea. If this occurs and you feel worse or it does not resolve in 1-2 days follow up with your doctor or return to the Emergency Department as this could be signs of serious underlying problems. Any medication can cause an allergic reaction, stop the pills immediately and return to the ER for rash, hives, breathing difficulties, or swelling. You are welcome to return to the emergency department anytime with new, worsening, or concerning symptoms. Problem Qualifiers Primary Impression: UTI (urinary tract infection) Urinary tract infection type: acute cystitis Hematuria presence: without hematuria Qualified Codes: N30.00 - Acute cystitis without hematuria
== END 2016-10-18 21:44 | disposition home or self-care (01) ==
LOC: C.EDB 20:32
DX: N30.00 Acute cystitis without hematuria (principal); J45.909 Unspecified asthma, uncomplicated; J43.9 Emphysema, unspecified; Z83.3 Family history of diabetes mellitus; Z82.49 Family history of ischemic heart disease and other diseases of the circulatory system

== ENCOUNTER 2019-12-28 07:51 | Inpatient (IN) ==
[2019-12-28] MEDS ORDERED: PENICILLIN G POTASSIUM 6 MU in DEXTROSE 5% 250 ML IV STA ×2 (09:12→16:29)
[2019-12-28] MEDS ORDERED: OXYTOCIN 30 UNITS/500 ML BAG IV PRN ×2 (09:12→19:33)
--- NOTE | 2019-12-28 11:38 | Obstetrical Progress Note ---
Date of Service December 28, 2019 Assessment & Plan Admission and Anticipated Discharge Date Admission Date: December 28, 2019 Subjective Met pt and spouse discussed course and PNC pt here for induction for post dates Bedside sono; VT FHR; CAT1 Ctx irregular VE; ft/post/thick/-3 EFW by Jazmin; 7-8lbs Cytotec PO Q 4 Discussed induction. pt is agreeable to plan Results & Data ([facility]) Vital Signs (Past 12 Hours) Vital Signs Temp Pulse Resp BP 12/28/19 08:08 36.6 C 20 12/28/19 08:01 36.6 C 89 20 118/70
[2019-12-28] MEDS: miSOPROStoL 50 MCG TAB PO SCH ×3 (11:44→21:24)
[2019-12-28] MEDS: LACTATED RINGER'S 1,000 ML IV PRN ×2 (12:36→14:01)
--- NOTE | 2019-12-28 12:37 | Anesthesiology Consultation ---
Date of Service December 28, 2019 Assessment & Plan Chart Review Chart Review: Patient NOT seen in Pre Admission Testing and Acceptable Risk for Labor Epidural Consults Requested none ASA ASA3 Proposed Anesthesia Anesthesia Type: Labor Epidural and CSE History Height/Weight Height: 5 ft 4 in Weight: 102.058 kg Allergies Allergy/AdvReac Type Severity Reaction Status Date / Time hydrocodone Allergy Mild MOM'S Verified 05/04/18 19:50 ALLERGIC ibuprofen Allergy Hives Verified 12/28/19 09:01 COATING ON MEDICATIONS Allergy Intermediate HIVES, Uncoded 05/04/18 19:50 SHAKINESS Medications Home Medications Medication Instructions Recorded Confirmed Last Taken prenat.vits,francisco,lci-sfyv-mwefa 1 tab PO DAILY 12/28/19 12/28/19 12/27/19 08:00 [ Vitamin] Active Medications Generic Name Dose Route Start Last Admin Trade Name Freq PRN Reason Stop Dose Admin Misoprostol 50 mcg 12/28/19 11:45 12/28/19 11:44 Misoprostol 50 Mcg Tab PO 01/27/20 11:44 50 mcg Q4 BRYAN Administration Past Medical History Medical History Asthma Bronchitis Closed head injury Emphysema of lung Exercise / Class Metabolic Activity II 4-5 Yardwork/Stairs/Walk up hill Past Anesthesia History No Hx of Anesthesia Complications and No Family Hx of Anesthesia Complications History of PONV No Hx of PONV and No Hx of Motion Sickness Social History Smoking Status: Never smoker Hx Alcohol Use: Yes Alcohol type: wine and other Alcohol Intake Frequency Comment: PRIOR TO + HPT Hx Substance Use: No Physical Exam Vital Signs Last Vital Signs Temp 36.6 C 12/28/19 08:08 Pulse 84 12/28/19 11:45 Resp 20 12/28/19 08:08 BP 128/65 12/28/19 11:45
--- NOTE | 2019-12-28 19:33 | Obstetrical Progress Note ---
Date of Service December 28, 2019 Assessment & Plan Admission and Anticipated Discharge Date Admission Date: December 28, 2019 Subjective Pt doing well FHR: CAT1 Ctx; 3-5mins VE; 3/50/-2 Starting Pitocin augmentation Results & Data ([facility]) Vital Signs (Past 12 Hours) Vital Signs Temp Pulse Resp BP Pulse Ox 12/28/19 19:06 36.4 C L 18 12/28/19 19:02 94 H 129/68 12/28/19 15:52 36.5 C 85 20 118/64 12/28/19 14:30 90 100 12/28/19 14:25 87 97 12/28/19 14:20 84 97 12/28/19 14:15 84 99 12/28/19 14:10 78 98 12/28/19 14:05 79 98 12/28/19 14:00 83 100 12/28/19 13:55 80 100 12/28/19 13:50 86 100 12/28/19 13:45 85 100 12/28/19 13:40 82 100 12/28/19 13:35 85 100 12/28/19 13:30 83 100 12/28/19 13:25 82 100 12/28/19 13:20 75 100 12/28/19 13:15 82 100 12/28/19 13:10 78 100 12/28/19 13:05 92 H 100 12/28/19 13:00 84 100 12/28/19 12:55 80 100 12/28/19 12:50 88 100 12/28/19 12:45 83 100 12/28/19 12:40 83 100 12/28/19 12:36 81 113/56 L 12/28/19 12:35 81 100 12/28/19 11:45 84 128/65 12/28/19 08:08 36.6 C 20 12/28/19 08:01 36.6 C 89 20 118/70
[2019-12-28] MEDS: PENICILLIN G POTASSIUM 3 MU in DEXTROSE 5% 100 ML IV PRN (21:00)
[2019-12-29] MEDS: PENICILLIN G POTASSIUM 3 MU in DEXTROSE 5% 100 ML IV PRN (01:09)
[2019-12-29] MEDS: miSOPROStoL 50 MCG TAB PO SCH (01:10)
[2019-12-29 02:15] LABS: Hematocrit (blood only) 32.1 % (37-47); Hemoglobin 10.1 g/dL (12.0-16.0); Mean Corpuscular Hemoglobin 23.8 pg (25-34); Mean Corpuscular Hgb Conc 31.5 g/dL (32-36); Mean Corpuscular Volume 75.5 fL (80-100); Mean Platelet Volume 11.2 fL (7.4-10.4); Nucleated RBC % (auto) 0.9 %; Platelet Count 208 K/uL (130-400); RDW Coefficient of Variation 15.4 % (11.5-14.5); RDW Standard Deviation 42.9 fL (36.4-46.3); Red Blood Count 4.25 M/uL (4.2-5.4); White Blood Count 11.63 K/uL (4.8-10.8)
--- NOTE | 2019-12-29 04:10 | Obstetrical Progress Note ---
Date of Service December 29, 2019 Assessment & Plan Admission and Anticipated Discharge Date Admission Date: December 28, 2019 Subjective Pt doing well FHR: CAT1 Ctx. 1-3mins VE; /-1 AROM-clear Pit; 14mu scalp placed Results & Data ([facility]) Vital Signs (Past 12 Hours) Vital Signs Temp Pulse Resp BP 12/29/19 03:58 85 134/75 12/29/19 02:58 18 12/29/19 02:57 88 123/61 12/29/19 02:45 36.4 C L 85 18 120/66 12/29/19 01:58 76 129/71 12/29/19 00:58 75 122/63 12/28/19 23:57 76 126/60 12/28/19 22:57 36.4 C L 90 20 126/76 12/28/19 21:57 89 140/65 12/28/19 19:06 36.4 C L 18 12/28/19 19:02 94 H 129/68
[2019-12-29] MEDS: LACTATED RINGER'S 1,000 ML IV PRN (04:37)
[2019-12-29] MEDS ORDERED: LIDOCAINE HCL 1% 20 ML VIAL ONE (04:48)
[2019-12-29] MEDS ORDERED: METHYLERGONOVINE MALEATE 0.2 MG/ML AMP ONE (05:13)
[2019-12-29] MEDS ORDERED: miSOPROStoL 200 MCG TAB ONE (05:17)
[2019-12-29] MEDS ORDERED: bisacodyL 10 MG SUPP PR PRN (05:21)
[2019-12-29] MEDS ORDERED: ACETAMINOPHEN 325 MG TAB PO PRN (05:21)
[2019-12-29] MEDS ORDERED: OXYTOCIN 30 UNITS/500 ML BAG IV PRN (05:21)
[2019-12-29] MEDS ORDERED: IBUPROFEN 600 MG TAB PO PRN (05:21)
[2019-12-29] MEDS ORDERED: METHYLERGONOVINE MALEATE 0.2 MG/ML AMP IM ONE (05:21)
[2019-12-29] MEDS ORDERED: HYDROCORTISONE ACETATE 25 MG SUPP PR PRN (05:21)
[2019-12-29] MEDS ORDERED: DIPHTHERIA/TETANUS/PERTUSSIS 0.5 ML SYR/VIAL IM ONE (05:21)
[2019-12-29] MEDS ORDERED: miSOPROStoL 200 MCG TAB PR ONE (05:21)
[2019-12-29] MEDS ORDERED: SUPERCREAM 0.870% 15 GM JAR EXT PRN (05:21)
[2019-12-29] MEDS ORDERED: BENZOCAINE 20% AER SPR 82.5 GM CAN EXT PRN (05:21)
[2019-12-29] MEDS: FERROUS SULFATE 325 MG TAB PO SCH (08:23)
[2019-12-29] MEDS: DOCUSATE SODIUM 100 MG CAP PO SCH ×2 (08:24→20:21)
[2019-12-29] MEDS: PRENATAL VITAMIN 1 TAB PO SCH (08:24)
--- NOTE | 2019-12-29 08:46 | Delivery Summary ---
DATE OF OPERATION: 12/29/2019 The patient delivered a live infant in occiput anterior presentation. There was no nuchal cord. Infant was delivered and placed on mother's abdomen. Delayed cord clamp was done after 1 minute. Cord blood was obtained. There was a true knot in the cord. Placenta spontaneously delivered and inspection of the placenta shows a normal gross looking placenta with a true knot in the umbilical cord. Inspection of the perineum shows a first-degree midline laceration which was repaired with 3-0 Vicryl. Rectal exam post repair showed good sphincter tone, no sutures are palpated in the rectum. The patient's weight and Apgars are in the pediatric record. All instruments were removed from the vagina and accounted for x2 including sponges, needles and retractors. ESTIMATED BLOOD LOSS: 150 mL. The patient and baby are doing well in recovery. I attest to the content of the Intraoperative Record and any orders documented therein. Any exception s are noted below.
[2019-12-29] MEDS ORDERED: NAPROXEN 375 MG TAB PO PRN (08:50)
[2019-12-30 06:46] LABS: Hematocrit (blood only) 31.3 % (37-47); Hemoglobin 9.6 g/dL (12.0-16.0); Mean Corpuscular Hemoglobin 23.4 pg (25-34); Mean Corpuscular Hgb Conc 30.7 g/dL (32-36); Mean Corpuscular Volume 76.3 fL (80-100); Mean Platelet Volume 11.3 fL (7.4-10.4); Platelet Count 188 K/uL (130-400); RDW Coefficient of Variation 15.6 % (11.5-14.5); RDW Standard Deviation 43.8 fL (36.4-46.3); White Blood Count 10.36 K/uL (4.8-10.8)
[2019-12-30] MEDS: DOCUSATE SODIUM 100 MG CAP PO SCH (07:58)
[2019-12-30] MEDS: PRENATAL VITAMIN 1 TAB PO SCH (07:58)
[2019-12-30] MEDS: FERROUS SULFATE 325 MG TAB PO SCH (07:58)
--- NOTE | 2019-12-30 11:05 | Obstetrical Progress Note ---
Date of Service December 30, 2019 Assessment & Plan Admission and Anticipated Discharge Date Admission Date: December 28, 2019 Subjective POD#1 doing well plans for d/c tolerating diet ambulating passing gas Physical Exam Constitutional: WD/WN, vitals as above comfortable abdomen soft and non- tender no edema neg Preeti's for d/c Results & Data ([facility]) Vital Signs (Past 12 Hours) Vital Signs Temp Pulse Resp BP Pulse Ox 12/30/19 08:00 36.6 C 66 16 104/68 99 12/30/19 04:00 36.5 C 61 16 107/72 100 Laboratory Results Laboratory Results - last 72 hr 12/29/19 12/30/19 02:01 06:11 WBC 11.63 H 10.36 RBC 4.25 4.10 L Hgb 10.1 L 9.6 L Hct 32.1 L 31.3 L MCV 75.5 L 76.3 L MCH 23.8 L 23.4 L MCHC 31.5 L 30.7 L RDW Std Deviation 42.9 43.8 RDW Coeff of Stanton 15.4 H 15.6 H Plt Count 208 188 MPV 11.2 H 11.3 H Absolute Nucleated RBC 0.10 H Nucleated RBC % (auto) 0.9
[2019-12-30] MEDS ORDERED: bisacodyL 5 MG TABEC PO SCH (20:00)
== END 2019-12-30 12:00 | disposition home or self-care (01) | DRG 807 ==
LOC: 4S1 07:51 → 4S2 12-29 09:23

== ENCOUNTER 2023-06-03 14:33 | Inpatient (IN) ==
[2023-06-03] MEDS ORDERED: LIDOCAINE 1% LOCAL 20 ML VIAL INFIL PRN (15:53)
[2023-06-03] MEDS ORDERED: OXYTOCIN 30 UNITS/NSS 30 UNITS/500 ML BAG IV PRN (15:53)
--- NOTE | 2023-06-03 15:53 | Obstetrical Progress Note ---
Date of Service June 03, 2023 Assessment & Plan (1) Prolonged gestation: Plan: 28 yo at 40+weeks Unremarkable reviewed PNC FHR; CAT1 Ctx minimal bedside sono; Vt EFW by curtis; 8lbs VE; /-2 Plan Cervidil #1 Admission and Anticipated Discharge Date Admission Date: June 03, 2023 Results & Data Vital Signs (Past 12 Hours) Vital Signs Temp Pulse Resp BP 06/03/23 15:06 36.4 C L 20 06/03/23 15:04 72 122/65
[2023-06-03] MEDS: miSOPROStoL 50 MCG TAB PO ONE (16:17)
[2023-06-03 16:25] LABS: Hematocrit (blood only) 35.4 % (37.0-47.0); Hemoglobin 11.6 g/dl (12.0-16.0); Mean Corpuscular Hemoglobin 29.7 pg (25.0-34.0); Mean Corpuscular Hgb Conc 32.8 g/dL (32.0-36.0); Mean Corpuscular Volume 90.8 fL (80.0-100.0); Mean Platelet Volume 10.3 fL (9.4-12.4); Platelet Count 182 K/uL (130-400); RDW Coefficient of Variation 13.2 % (11.5-14.5); RDW Standard Deviation 42.9 fL (36.4-46.3)
[2023-06-03] MEDS: DINOPROSTONE 10 MG INSERT PV ONE (20:23)
--- NOTE | 2023-06-03 20:34 | Obstetrical Progress Note ---
Date of Service June 03, 2023 Assessment & Plan (1) Prolonged gestation: Plan: Pt doing well FHR; CAT1 Ctx 1-5min VE ft/thick/pos Cytotec placed in vagina Admission and Anticipated Discharge Date Admission Date: June 03, 2023 Results & Data Vital Signs (Past 12 Hours) Vital Signs Temp Pulse Resp BP 06/03/23 19:19 36.5 C 71 18 123/72 06/03/23 15:06 36.4 C L 20 06/03/23 15:04 72 122/65
--- OUTSIDE RECORDS SUMMARY | 2023-06-03 23:09 | External Medical Summary | Summary of Care ---
Author Name Unknown Organization [facility] Address [address] [facility] [place] [address] Phone [phone] Care Team Providers Care Privacy Manager Name Role Phone Sita Jefferson DO Primary Care Provider [phone] Reason for Visit * Reason Comments Return Visit Encounter Details Date Type Department Care Team (Late st Contact Info) Description 05/05/2023 1:45 PM EDT Office Visit Gynecology/Obstetric s [facility] [address] [facility] [place] [address] Camila Carpio, NESSA, CNM [address] [facility] [place] [address] Encounter for supervision of other normal in third trimester*; Health counseling; History of gestational diabetes mellitus (GDM); Class 2 obesity; Rubella non-immune status, antepartum Allergies Active Allergy Reactions Criticality Noted Date Comments Ibuprofen Other (Please comment) 03/19/2010 Hot and shaking when taking coated ibuprofen documented as of this encounter (statuses as of 05/05/2023) Medications Medication Sig Dispensed Refills Start Date End Date Status Plus 27-1 MG Oral Tablet Take 1 Tablet by mouth in the morning. 100 Tablet 3 10/23/2022 Active Ventolin HFA 108 (90 Base) MCG/ACT Inhalation Aerosol SolutionIndications:H istory of asthma Inhale 2 Puffs by mouth every 4 hours as needed for Wheezing. 18 g 1 01/28/2023 Active documented as of this encounter (statuses as of 05/05/2023) Active Problems Problem Noted Date Diagnosed Date Rubella non-immune status, antepartum 11/21/2022 Health counseling 10/23/2022 Overview: Problem Action Taken Date entered Entered by Date resolved Prior h/o gestational diabetes Will discuss with provider 10/23/2022 Cassie Vidal RN 10/23/2022 nutrition Due date letter given for WIC 10/23/2022 Cassie Vidal RN 10/23/2022 Problem Action Taken Date entered Entered by Date resolved Current needs or questions Patient denies having any current needs or questions 11/21/2022 Rossy Reynolds RN 11/21/2022 Problem Action Taken Date entered Entered by Date resolved Current needs or questions Patient denies having any current needs or questions 12/27/2022 Rossy Reynolds RN 12/27/2022 Problem Action Taken Date entered Entered by Date resolved Current needs or questions Patient denies having any current needs or questions 02/26/2023 Rossy Reynolds RN 02/26/2023 Problem Action Taken Date entered Entered by Date resolved Current needs or questions Patient denies having any current needs or questions 03/10/2023 Rossy Reynolds RN 03/10/2023 Problem Action Taken Date entered Entered by Date resolved Current needs or questions Patient denies having any current needs or questions 03/27/2023 Rossy Reynolds RN 03/27/2023 Problem Action Taken Date entered Entered by Date resolved Current needs or questions Patient denies having any current needs or questions 04/23/2023 Rossy Reynolds RN 04/23/2023 Problem Action Taken Date entered Entered by Date resolved Current needs or questions Patient denies having any current needs or questions 05/05/2023 Cassie Vidal RN 05/05/2023 History of gestational diabetes mellitus (GDM) 0 10/23/2022 Overview: Early glucola ordered Class 2 obesity 10/23/2022 Overview: Pregravid BMI 37.31 Growth q 4 weeks after 20 weeks NST weekly at 37 weeks No advance directives 01/05/2018 Overview: No advance directives at this time Supervision of normal 11/04/2013 Overview: Flu shot 10/28/19 O+ Baby boy Discussed . Suggested appt with with Veronique Elliott, health and safety consultant. Problem Action Taken Date entered Entered by Date resolved Current needs or questions Patient denies having any current needs or questions 11/11/2019 Veronique Copeland RN 11/11/2019 Problem Action Taken Date entered Entered by Date resolved Current needs or questions Patient denies having any current needs or questions 11/25/2019 Veronique Copeland RN 11/25/2019 Problem Action Taken Date entered Entered by Date resolved Current needs or questions Patient denies having any current needs or questions 11/25/2019 Veronique Copeland RN 11/25/2019 Problem Action Taken Date entered Entered by Date resolved Pt denies any concerns No concerns 12/02/2019 Veronique Copeland RN 12/02/2019 Problem Action Taken Date entered Entered by Date resolved Current needs or questions Patient denies having any current needs or questions 12/09/2019 Veronique Copeland RN 12/09/2019 Problem Action Taken Date entered Entered by Date resolved Current needs or questions Patient denies having any current needs or questions 12/24/2019 Veronique Copeland RN 12/24/2019 Last Assessment & Plan: Problem Action Taken Date entered Entered by Date resolved Current needs or questions Pt checking sugars. Feels they are doing well. Fastings good. Planning to increase protein to see if this helps. Patient denies having any current needs or questions 10/28/2019 Cassie Vidal RN 10/28/2019 Estimated Date of Delivery Comme nts Yes 05/31/2023 Based on Ultraso und documented as of this encounter (statuses as of 05/05/2023) Resolved Problems Problem Noted Date Diagnosed Date Resolved Date Obesity in , antepartum 10/13/2019 01/12/2020 Overview: Class II obesity (BMI 35-39.9) -Weight gain 11-20lbs -Nutrition consult -MF anatomy scan, growth scan q4 weeks -Early GDM screening Diet controlled gestational diabetes mellitus (GDM) in third trimester 09/30/2019 01/12/2020 Overview: Dx at 27w5d, 1hr glucola 205. RECOMMENDATIONS: -Recommend monitoring blood sugars with daily fasting blood sugar (maintained at ? 95) and 1 hour post prandial measurements (maintained at ? 140). Medications should be adjusted to maintain these target values. -Given glucometer and supplies and instructed on proper use. -Recommend dietist consult. Lifestyle changes are also indicated including weight management and increased physical activity if not otherwise contraindicated in . -Recommend surveillance and delivery as follows: - If blood sugars are well-controlled by diet alone, delivery should be accomplished by 41w 0d with twice weekly surveillance after 40w 0d. - If patient requires medications to control blood sugars or if signs of macrosomia/IUGR exist, then recommend twice weekly surveillance starting at 32 weeks and delivery after 39w 0d and accomplished by EDC. - If poor blood sugar control, please refer to MFM for consideration of earlier delivery. -Recommend intrapartum monitoring of blood sugars every 1-2 hours and treatment with insulin (either SC or IV) as indicated. -Recommend 2 hour glucose tolerance testing with 75-gram glucose load 6-8 weeks to ensure that her diabetes resolves after delivery. Acute pharyngitis 10/22/2018 05/04/2019 Low-lying placenta 02/20/2014 5 Overview: Seen on 20wk sono; recheck in 6-8wks Resolved at 26wks Asthma in remission 05/27/2008 08/14/19 18 Overview: @ [facility] 11/03/13 pt reports having not utilized albuterol inhaler in several months documented as of this encounter (statuses as of 05/05/2023) Immunizations Name Administration Dates Next Due DTaP Dipth/Tet/Acell Pertussis (Infanrix), Peds 04/14/1998,01/01/1996,1993,09/07,1993 HIB PRP-T, 4 dose (ActHib) 04/29/1994,,1993,05/10 HPV Vaccine, 4-Valent 09/28/2009,06/07/2009,05/18 Hepatitis B, 0-19 yrs 1993,1993,02/18 IPV - Polio Virus Vaccine (Inact) 1995,04/29/1994,1993,05/10 MMR - Measles/Mumps/Rubella Vaccine 04/14/1998,0 04/29/1994 Meningococcal Conjugate Vacc ine (Menactra/Menveo) 05/27/2008 Seasonal Influenza, PF, 6 M & above, IM , (FluLaval or Fluzone) 10/28/2019 Seasonal Influenza, Split, I IV3, With Preserve, Inj 11/04/2013 TD - Tetanus/Diptheria (ADULT) 07/09/2002 TDAP (age 10 and older)(Boostrix) 03/10/2023, TDAP (age 11 and older)(Adacel) 05/27/2008 documented as of this encounter Social History Tobacco Use Types Packs/Day Years Used Date Smoking Tobacco: Never Smokeless Tobacco: Never Comments:Mom smokes outside Alcohol Use Standard Drinks/Week Comments Not Currently 0 (1 standard drink = 0.6 oz pur e alcohol) rare PHQ-2 Answer Date Recorded PHQ Adult Total Score 0 03/10/2023 Hunger Vital Sign Answer Date Recorded Within the past 12 months, y ou worried that your food would run out before you got the money to buy more. Never true 10/24/19 23 Within the past 12 months, t he food you bought just didn't last and you didn't have money to get more. Never true 10/23/2022 [place] Depression Scale Answer Date Recorded [place] Depression Scale Total 3 04/11/2023 The thought of harming myself has occurred to me . Never 04/11/2023 Estimated Date of Delivery Comme nts Yes 05/31/2023 Based on Ultraso und Sex and Gender Information Value Date Recorded Sex Assigned at Female 12/08/2018 9:59 AM EDT Gender Identity Female 12/08/2018 9:59 AM EDT Sexual Orientation Straight 12/08/2018 9: 59 AM EDT Job Start Date Occupation Industry Not on file Not on file Not on file documented as of this encounter Last Filed Vital Signs Vital Sign Reading Time Taken Comments Blood Pressure 110/70 05/05/2023 1:42 PM EDT Pulse - - Temperature - - Respiratory Rate - - Oxygen Saturation - - Inhaled Oxygen Concentration - - Weight 103.9 kg (229 lb) 05/05/2023 1:42 PM EDT Height - - Body Mass Index 39.31 03/27/2023 1:32 PM EST documented in this encounter Progress Notes * Camila Carpio DNP, CNM - 05/05/2023 2:13 PM EDT 36w2d Having a lot of back pain and pubic pain. Gave work restriction letter. Encouraged maternity belt. Works at [employer] 10 hour days. GBS culture collected. Reviewed labor precautions, kick counts, loss of fluid, vaginal bleeding, round ligament pain, and encouraged hydration. Still unsure on pp contraception. Has last growth US 05/07 RTO in 1 week, NSTs next week. * Cassie Vidal RN - 05/05/2023 1:43 PM EDT Pt wants to discuss stopping work. Feels that her working is make her pain worse. documented in this encounter Plan of Treatment Upcoming Encounters Date Type Department Care Team (Late st Contact Info) Description 05/08/2023 12:45 PM EDT Imaging Radiology [facility] [address] [place] [address] 05/08/2023 1:15 PM EDT Office Visit Gynecology/Obstetrics Garett Maldonado [address] [place] [address] Ladan Montano CRNP [address] [place] [address] Nurse Joel [facility]aise [address] [place] [address] 05/14/2023 1:30 PM EDT Office Visit Gynecology/Obstetrics Garett Maldonado [address] [place] [address] Kacie Stanley CRNP [address] [place] [address] Joel, Non Stress Tests Blaise [address] [place] [address] 05/21/2023 1:30 PM EDT Office Visit Gynecology/Obstetrics Garett Malodnado [address] [place] [address] Kacie Stanley CRNP [address] [place] [address] Joel, Non Stress Tests Bl[place] [address] [place] [address] 05/28/2023 1:30 PM EDT Office Visit Gynecology/Obstetrics Garett Maldonado [address] [place] [address] Kacie Stanley CRNP [address] [place] [address] Joel, Non Stress Tests Bla[place] [address] [place] [address] Pending Results Name Type Priority Associated Diagnoses Date /Time GROUP B STREP CULTURE/PCR Lab Routine Encounter for supervision of other normal in third trimester 05/05/2023 2:18 PM EDT Scheduled Orders Name Type Priority Associated Diagnoses Orde r Schedule GROUP B STREP CULTURE/PCR Lab Routine Encounter for supervision of other normal in third trimester Expected: 05/05/2023, Expires: 05/04/2024 Health Maintenance Due Date Last Done Comments Pneumococcal Vaccine: Pediatrics (0 to 5 Years) and At-Risk Patients (6 to 64 Years) (1 of 2 - PCV) 1999 COVID-19 Vaccine (2022-24 season) 2022 Influenza Vaccine (FLU shot) (#1) 2022 10/28/2019, 11/04/2013 HPV/Co-Test 2023 Depression Screening 03/10/2024 03/10/2023 Cervical Cancer Screening 10/23/2025 Pap Smear 10/23/2025 10/23/2022, 05/19, 03/07/2017 DTaP,Tdap,and Td Vaccines (9 - Td or Tdap) 03/10/2033 03/10/2023, 09/30/2019, 05/27/2008, Additional history exists Hepatitis B Completed 1993, 04/18, 1993 MENINGOCOCCAL (MENACTRA/MENVEO) Aged Out 05/27/2008 No longer eligible based on patient's age to complete this topic GARDASIL-HPV IMMUNIZATION SERIES Completed 09/28/2009, 06/07/2009, 05/27/2008 documented as of this encounter Medical Devices Not on filedocumented as of this encounter Visit Diagnoses Diagnosis Encounter for supervision of other normal in third trimester- Primary Health counseling Other specified counseling History of gestational diabetes mellitus (GDM) Class 2 obesity Rubella non-immune status, antepartum Other specified complication, antepartum documented in this encounter Care Teams Privacy Manager Relationship Specialty Start Date End Date Sita Jefferson DO [address] [place] [address] PCP - General Family Medicine 03/29/19 documented as of this encounter
--- OUTSIDE RECORDS SUMMARY | 2023-06-03 23:09 | External Medical Summary | Summary of Care ---
Author Name Unknown Organization [facility] Address [address] [facility] [place] [address] Phone [phone] Care Team Providers Care Receiving Associate Name Role Phone Sita Jefferson DO Primary Care Provider [phone] Encounter Details Date Type Department Care Team (Late st Contact Info) Description 05/02/2023 Telephone Gynecology/Obstetrics [facility] [address] [place] [address] Magen Frazier MD [address] [place] [address] Allergies Active Allergy Reactions Criticality Noted Date Comments Ibuprofen Other (Please comment) 03/19/2010 Hot and shaking when taking coated ibuprofen documented as of this encounter (statuses as of 05/02/2023) Medications Medication Sig Dispensed Refills Start Date [...] as of this encounter (statuses as of 05/02/2023) Active Problems Problem Noted Date Diagnosed Date [...] or questions 04/23/2023 Rossy Reynolds RN 04/23/2023 History of gestational diabetes mellitus (GDM) 0 10/23/2022 Overview: Early glucola ordered Class 2 obesity 10/23/2022 Overview: Pregravid BMI 37.31 Growth q 4 weeks after 20 weeks NST weekly at 37 weeks No advance directives 01/05/2018 Overview: No advance directives at this time Supervision of normal 11/04/2013 Overview: Flu shot 10/28/19 O+ Baby boy Discussed . Suggested appt with with Veronique Elliott, hospice care consultant. Problem Action Taken Date entered Entered [...] as of this encounter (statuses as of 05/02/2023) Resolved Problems Problem Noted Date Diagnosed Date Resolved Date Obesity in , antepartum 10/13/2019 01/12/2020 Overview: Class II obesity (BMI 35-39.9) -Weight gain 11-20lbs -Nutrition consult -MFM anatomy scan, growth scan q4 weeks -Early [...] supplies and instructed on proper use. -Recommend osteopathic resident consult. Lifestyle changes are also indicated including [...] as of this encounter (statuses as of 05/02/2023) Immunizations Name Administration Dates Next Due DTaP [...] money to get more. Never true 10/23/2022 [place] Depression Scale Answer Date Recorded [place] Depression Scale Total 3 04/11/2023 The thought [...] on file documented as of this encounter Miscellaneous Notes * Telephone Encounter - Rossy Reynolds RN - 05/02/2023 9:37 AM EDT Patient calling in reports that she was in [place] last night for back pain. Labor was ruled out. Patient states that she would like to be off work for the remainder of the due to back pain. Advised that this is typically not a reason to be completely off work and that the provider has tohave a medical reason to take her off work completely. Advised we have a work restrictions letter that I can fax to her work for her if she gives us the fax number and that hopefully her work can accommodate those. Advised she discuss with the provider at her next visit. She states she does not want to wait that long, offered sooner appt for Friday to discuss with provider. She accepted. Patient w as advised to call back with fax number if she wants us to fax restriction letter. Advised her to call triage with any new labor symptoms. She verbalized understanding. documented in this encounter Plan of Treatment Upcoming Encounters Date Type Department Care Team (Late st Contact Info) Description 05/05/2023 1:45 PM EDT Office Visit Gynecology/Obstetrics Garett Maldonado [address] [place] [address] Camila Carpio, NESSA, CN[address] [place] [address] 05/08/2023 12:45 PM EDT Imaging Radiology [facility] [address] [place] [address] 05/08/2023 1:15 PM EDT Office Visit Gynecology/Obstetrics Garett Brandons [address] [place] [address] Ladan Montano CRNP [address] [place] [address] Nurse Joel [facility] Return Blaise [address] [place] [address] 05/14/2023 1:30 PM EDT Office Visit Gynecology/Obstetrics Rangeltara Brandons [address] [place] [address] Kacie Stanley CRNP [address] [place] [address] Maldonado, Non Stress Tests Bla[place] [address] [place] [address] 05/21/2023 1:30 PM EDT Office Visit Gynecology/Obstetrics Garett Maldonado [address] [place] [address] Kacie Stanley CRNP [address] [place] [address] Joel Non Stress Tests Blaise [address] [place] [address] 05/28/2023 1:30 PM EDT Office Visit Gynecology/Obstetrics Garett Maldonado [address] [place] [address] Kacie Stanley CRNP [address] [place] [address] Joel Non Stress Tests Blaise [address] [place] [address] Health Maintenance Due Date Last Done Comments Pneumococcal Vaccine: Pediatrics (0 to 5 Years) and At-Risk Patients (6 to 64 Years) (1 of 2 - PCV) 1999 COVID-19 Vaccine ( - 2022-24 season) 2022 Influenza Vaccine (FLU shot) (#1) [...] Not on filedocumented as of this encounter Care Teams Receiving Associate Relationship Specialty Start Date End Date Sita Jefferson DO [address] [place] [address] PCP - General Family Medicine 03/29/19 documented as of this encounter
--- OUTSIDE RECORDS SUMMARY | 2023-06-03 23:09 | External Medical Summary | Summary of Care ---
Author Name Unknown Organization [facility] Address [address] [facility] [place] [address] Phone [phone] Care Team Providers Care Professor Of Forest Planning Name Role Phone Sita Jefferson DO Primary Care Provider [phone] Reason for Visit * Reason Comments Return Visit Encounter Details Date Type Department Care Team (Late st Contact Info) Description 05/21/2023 1:30 PM EDT Office Visit Gynecology/Obstetric s [facility] [address] [place] [address] Kacie Stanley CRNP [address] [place] [address] Joel, Non Stress Tests Bla[place] [address] [place] [address] Encounter for supervision of other normal in third trimester*; Health counseling; History of gestational diabetes mellitus (GDM); Class 2 obesity; Rubella non-immune status, antepartum; Positive GBS test Allergies Active Allergy Reactions Criticality Noted Date Comments Ibuprofen Other (Please comment) 03/19/2010 Hot and shaking when taking coated ibuprofen documented as of this encounter (statuses as of 05/21/2023) Medications Medication Sig Dispensed Refills Start Date [...] as of this encounter (statuses as of 05/21/2023) Active Problems Problem Noted Date Diagnosed Date Positive GBS test 05/07/2023 Rubella non-immune status, antepartum 11/21/2022 Health counseling [...] or questions 05/05/2023 Cassie Vidal RN 05/05/2023 Problem Action Taken Date entered Entered by Date resolved Current needs or questions Patient denies having any current needs or questions 05/14/2023 Rossy Reynolds RN 05/14/2023 History of gestational diabetes mellitus (GDM) 0 10/23/2022 Overview: Early glucola ordered Class 2 obesity 10/23/2022 Overview: Pregravid BMI 37.31 Growth q 4 weeks after 20 weeks NST weekly at 37 weeks No advance directives 01/05/2018 Overview: No advance directives at this time Supervision of normal 11/04/2013 Overview: Flu shot 10/28/19 O+ Baby boy Discussed . Suggested appt with with Veronique Elliott, edi consultant. Problem Action Taken Date entered Entered [...] as of this encounter (statuses as of 05/21/2023) Resolved Problems Problem Noted Date Diagnosed Date [...] supplies and instructed on proper use. -Recommend director of financial planning consult. Lifestyle changes are also indicated including [...] poor blood sugar control, please refer to [facility] for consideration of earlier delivery. -Recommend intrapartum [...] as of this encounter (statuses as of 05/21/2023) Immunizations Name Administration Dates Next Due DTaP [...] money to get more. Never true 10/23/2022 [place] Depression Scale Answer Date Recorded [place] Depression Scale Total 3 04/11/2023 The thought [...] Sign Reading Time Taken Comments Blood Pressure 120/68 05/21/2023 2:26 PM EDT Pulse - - Temperature - - Respiratory Rate - - Oxygen Saturation - - Inhaled Oxygen Concentration - - Weight 106.1 kg (234 lb) 05/21/2023 2:26 PM EDT Height 162.6 cm (5' 4") 05/21/2023 2:26 PM EDT Body Mass Index 40.17 05/21/2023 2:26 PM EDT documented in this encounter Progress Notes * Kacie Stanley CRNP - 05/21/2023 1:43 PM EDT 38w4d Pt denies concerns. Baby is active. No contractions or bleeding. ELAYNE Douglas ASSESSMENT assessment with Non-stress Test completed on 05/21/2023 at 38.4weeks gestation for indication of obesity heart baseline: 130 bpm Variability: Moderate Decelerations: absent Accelerations: present Contractions: None NST start time: 1334 NST stop time: 1417 NST strip reviewed, interpreted, and approved by OB provider, ELAYNE Douglas . NST strip stored in clinic storage file documented in this encounter Plan of Treatment Upcoming Encounters Date Type Department Care Team (Late st Contact Info) Description 05/28/2023 1:30 PM EDT Office Visit Gynecology/Obstetrics Garett Maldonado [address] [place] [address] Kacie Stanley CRNP [address] [place] [address] Bharti Maldonado Stress Tests Bla[place] [address] [place] [address] Health Maintenance Due Date Last Done Comments Pneumococcal Vaccine: Pediatrics (0 to 5 Years) and At-Risk Patients (6 to 64 Years) (1 of 2 - PCV) 1999 COVID-19 Vaccine (1 - 2022- season) 2022 HPV/Co-Test 2023 Influenza Vaccine (FLU shot) (Season Ended) 2023 10/28/2019, 11/04/2013 Depression Screening 03/10/2024 03/10/2023 Cervical Cancer Screening [...] non-immune status, antepartum Other specified complication, antepartum Positive GBS test documented in this encounter Care Teams Professor Of Forest Planning Relationship Specialty Start Date End Date Sita Jefferson DO [address] [place] [address] PCP - General Family Medicine 03/29/19 documented as of this encounter
--- OUTSIDE RECORDS SUMMARY | 2023-06-03 23:09 | External Medical Summary | Summary of Care ---
Author Name Unknown Organization [facility] Address [address] [facility] [place] [address] Phone [phone] Care Team Providers Care Divinity Teacher Name Role Phone Sita Jefferson DO Primary Care Provider [phone] Reason for Visit * Reason Comments Return Visit Encounter Details Date Type Department Care Team (Late st Contact Info) Description 05/05/2023 1:45 PM EDT Office Visit Gynecology/Obstetric s [facility] [address] [facility] [address] [place] [address] Camila Carpio, NESSA, CNM [address] [facility] [place] [address] Encounter for supervision [...] . Suggested appt with with Veronique Elliott, career development consultant. Problem Action Taken Date entered Entered [...] supplies and instructed on proper use. -Recommend tempering kiln tender consult. Lifestyle changes are also indicated including [...] money to get more. Never true 10/23/2022 [place] Depression Scale Answer Date Recorded [place] Depression Scale Total 3 04/11/2023 The thought [...] 05/08/2023 12:45 PM EDT Imaging Radiology [facility] [address] [place] [address] 05/08/2023 1:15 PM EDT Office Visit Gynecology/Obstetrics G[facility]tt [facility] [address] [place] [address] Ladan Montano CRNP [address] [place] [address] Nurse Joel Healthy [facility] Return Blaise [address] [place] [address] 05/14/2023 1:30 PM EDT Office Visit Gynecology/Obstetrics Garett Maldonado [address] [place] [address] Kacie Stanley CRNP [address] [place] [address] Joel, Non Stress Tests Blaise [address] [place] [address] 05/21/2023 1:30 PM EDT Office Visit Gynecology/Obstetrics Garett Maldonado [address] [place] [address] Kacie Stanley CRNP [address] [place] [address] Joel, Non Stress Tests Blaise [address] [place] [address] 05/28/2023 1:30 PM EDT Office Visit Gynecology/Obstetrics Garett Maldonado [address] [place] [address] Kaice Stanley CRNP [address] [place] [address] Joel, Non Stress Tests Blaise [address] [place] [address] Pending Results Name Type Priority Associated Diagnoses [...] antepartum documented in this encounter Care Teams Divinity Teacher Relationship Specialty Start Date End Date Sita Jefferson DO [address] [place] [address] PCP - General Family Medicine 03/29/19 documented as of this encounter
--- OUTSIDE RECORDS SUMMARY | 2023-06-03 23:09 | External Medical Summary | Summary of Care ---
Author Name Unknown Organization [facility] Address [address] [facility] [place] [address] Phone [phone] Care Team Providers Care Primary School Principal Name Role Phone Sita Jefferson DO Primary Care Provider [phone] Reason for Visit * Reason Comments Return Visit Non Stress Test Encounter Details Date Type Department Care Team (Late st Contact Info) Description 05/28/2023 1:30 PM EDT Office Visit Gynecology/Obstetric s [facility] [address] [place] [address] Kacie Stanley CRNP [address] [place] [address] Joel Non Stress Tests Blaise [address] [place] [address] Encounter for supervision of other normal in third trimester*; Health counseling; History of gestational diabetes mellitus (GDM); Class 2 obesity; Rubella non-immune status, antepartum; Positive GBS test Allergies Active Allergy Reactions Criticality Noted Date Comments Ibuprofen Other (Please comment) 03/19/2010 Hot and shaking when taking coated ibuprofen documented as of this encounter (statuses as of 05/28/2023) Medications Medication Sig Dispensed Refills Start Date [...] as of this encounter (statuses as of 05/28/2023) Active Problems Problem Noted Date Diagnosed Date [...] or questions 05/14/2023 Rossy Reynolds RN 05/14/2023 Problem Action Taken Date entered Entered by Date resolved Current needs or questions Patient denies having any current needs or questions 05/21/2023 Rossy Reynolds RN 05/21/2023 History of gestational diabetes mellitus (GDM) 0 10/23/2022 Overview: Early glucola ordered Class 2 obesity 10/23/2022 Overview: Pregravid BMI 37.31 Growth q 4 weeks after 20 weeks NST weekly at 37 weeks No advance directives 01/05/2018 Overview: No advance directives at this time Supervision of normal 11/04/2013 Overview: Flu shot 10/28/19 O+ Baby boy Discussed . Suggested appt with with Veronique Elliott, natural remedy consultant. Problem Action Taken Date entered Entered [...] as of this encounter (statuses as of 05/28/2023) Resolved Problems Problem Noted Date Diagnosed Date Resolved Date Obesity in , antepartum 10/13/2019 01/12/2020 Overview: Class II obesity (BMI 35-39.9) -Weight gain 11-20lbs -Nutrition consult -[facility] anatomy scan, growth scan q4 weeks -Early [...] supplies and instructed on proper use. -Recommend it account manager consult. Lifestyle changes are also indicated including [...] poor blood sugar control, please refer to [facility] for consideration of earlier delivery. -Recommend [...] remission 05/27/2008 08/14/19 18 Overview: @ [facility] 9/17/14 pt reports having not utilized albuterol inhaler in several months documented as of this encounter (statuses as of 05/28/2023) Immunizations Name Administration Dates Next Due DTaP [...] money to get more. Never true 10/23/2022 [place] Depression Scale Answer Date Recorded [place] Depression Scale Total 3 04/11/2023 The thought [...] Sign Reading Time Taken Comments Blood Pressure 116/72 05/28/2023 1:24 PM EDT Pulse - - Temperature - - Respiratory Rate - - Oxygen Saturation - - Inhaled Oxygen Concentration - - Weight 106.1 kg (234 lb) 05/28/2023 1:24 PM EDT Height - - Body Mass Index 40.17 05/21/2023 2:26 PM EDT documented in this encounter Progress Notes * Kacie Stanley CRNP - 05/28/2023 1:52 PM EDT 39w4d No concerns. Did not eat before she came to her appt today, just woke up. Baby is active, denies contractions, bleeding, LOF IOL 06/02 ASSESSMENT assessment with Non-stress Test completed on 05/28/2023 at 39.4weeks gestation for indication of obesity heart baseline: 115 bpm Variability: Moderate Decelerations: absent Accelerations: present Contractions: None NST start time: 1316 NST stop time: 1346 NST strip reviewed, interpreted, and approved by OB providerKacie CRNP . NST strip stored in clinic storage file documented in this encounter Nursing Notes * Rossy Reynolds RN - 05/28/2023 1:40 PM EDT Patient seen by [facility] Outboard Motor Mechanic. Patient denies any questions or concerns. have you cut down with your smoking n/a have you quit n/a have you seen a it account manager n/a have you seen a social sciences research scientist n/a are you receiving counseling n/a have you received dental care during your no are you enrolled in WIC yes do you receive food stamps or oakley assistance n/a Rossy Reynolds RN documented in this encounter Plan of Treatment Health Maintenance Due Date Last Done Comments [...] test documented in this encounter Care Teams Primary School Principal Relationship Specialty Start Date End Date Sita Jefferson DO [address] [facility] [place] [address] PCP - General Family Medicine 03/29/19 documented as of this encounter
--- OUTSIDE RECORDS SUMMARY | 2023-06-03 23:09 | External Medical Summary | Summary of Care ---
Author Name Unknown Organization [facility] Address [address] [facility] [place] [address] Phone [phone] Care Team Providers Care Honing Machine Operator Production Name Role Phone Sita Jefferson DO Primary Care Provider [phone] Reason for Visit * Reason Comments Return Visit Encounter Details Date Type Department Care Team (Late st Contact Info) Description 05/21/2023 1:30 PM EDT Office Visit Gynecology/Obstetric s [facility] [address] [place] [address] Kacie Stanley CRNP [address] [place] [address] Joel, Non Stress Tests Blaise [address] [place] [address] Encounter for supervision of other normal in [...] . Suggested appt with with Veronique Elliott, client experience consultant. Problem Action Taken Date entered Entered [...] (BMI 35-39.9) -Weight gain 11-20lbs -Nutrition consult -[facility] anatomy scan, growth scan q4 weeks [...] supplies and instructed on proper use. -Recommend management trainee consult. Lifestyle changes are also indicated including [...] poor blood sugar control, please refer to [facility] for consideration of earlier delivery. -Recommend [...] money to get more. Never true 10/23/2022 [place] Depression Scale Answer Date Recorded [place] Depression Scale Total 3 04/11/2023 The thought [...] Nursing Notes * Rossy Reynolds RN - 05/21/2023 3:14 PM EDT Patient seen by [facility] Digital [employer]. Patient denies any questions or concerns. documented in this encounter Plan of Treatment Upcoming Encounters Date Type Department Care Team (Late st Contact Info) Description 05/28/2023 1:30 PM EDT Office Visit Gynecology/Obstetrics Garett Malodnado [address] [place] [address] Kacie Stanley CRNP [address] [place] [address] Joel, Non Stress Tests Blaise [address] [place] [address] Health Maintenance Due Date Last Done Comments Pneumococcal Vaccine: Pediatrics (0 to 5 Years) and At-Risk Patients (6 to 64 Years) (1 of 2 - PCV) 1999 COVID-19 Vaccine ( - season) 2022 HPV/Co-Test 2023 Influenza Vaccine (FLU [...] test documented in this encounter Care Teams Honing Machine Operator Production Relationship Specialty Start Date End Date Sita Jefferson DO [address] [place] [address] PCP - General Family Medicine 03/29/19 documented as of this encounter
--- OUTSIDE RECORDS SUMMARY | 2023-06-03 23:09 | External Medical Summary ---
Author Name Unknown Address Unknown Organization K01:[facility] - [address] [facility] [place] [address] Laboratory Report Ordering Provider Test Date Status ASAEL MADDEN 05/05/2023 14:18:43 Final Observation Date Value Abnormality Reference (Units ) Status Streptococcus agalactiae DNA [Presence] in Specimen by SAJAN with probe detection 05/05/2023 14:18:43 Positive Abnormal Negative Final Group B Streptococcus detect ed by culture-enhanced PCR (amplified probe).
The collection of vaginal/rectal swab specimen combinations (FDA approved specimen type) is optimal for the detection of Group B Streptococcus. Single source collection (vaginal only or rectal only) or alternate specimen sources may lead to false negative results. Performing Location [facility] - [address] [place] [address]
--- OUTSIDE RECORDS SUMMARY | 2023-06-03 23:09 | External Medical Summary | Summary of Care ---
Author Name Unknown Organization [facility] Address [address] [facility] [place] [address] Phone [phone] Care Team Providers Care Spray Gunner Name Role Phone Sita Jefferson DO Primary Care Provider [phone] Reason for Visit * Reason Comments Return Visit Encounter Details Date Type Department Care Team (Late st Contact Info) Description 05/14/2023 1:30 PM EDT Office Visit Gynecology/Obstetric s [facility] [address] [place] [address] Kacie Stanley CRNP [address] [place] [address] Joel, Non Stress Tests Blaise [address] [place] [address] Encounter for supervision of other normal in third trimester*; Health counseling; History of gestational diabetes mellitus (GDM); Class 2 obesity; Rubella non-immune status, antepartum; Positive GBS test Allergies Active Allergy Reactions Criticality Noted Date Comments Ibuprofen Other (Please comment) 03/19/2010 Hot and shaking when taking coated ibuprofen documented as of this encounter (statuses as of 05/14/2023) Medications Medication Sig Dispensed Refills Start Date [...] as of this encounter (statuses as of 05/14/2023) Active Problems Problem Noted Date Diagnosed Date [...] . Suggested appt with with Veronique Elliott, business info consultant. Problem Action Taken Date entered Entered [...] as of this encounter (statuses as of 05/14/2023) Resolved Problems Problem Noted Date Diagnosed Date [...] supplies and instructed on proper use. -Recommend sheep herder consult. Lifestyle changes are also indicated including [...] poor blood sugar control, please refer to [facility] for consideration of earlier delivery. -Recommend [...] as of this encounter (statuses as of 05/14/2023) Immunizations Name Administration Dates Next Due DTaP [...] money to get more. Never true 10/23/2022 [place] Depression Scale Answer Date Recorded [place] Depression Scale Total 3 04/11/2023 The thought [...] Sign Reading Time Taken Comments Blood Pressure 114/62 05/14/2023 1:45 PM EDT Pulse - - Temperature - - Respiratory Rate - - Oxygen Saturation - - Inhaled Oxygen Concentration - - Weight 104.8 kg (231 lb) 05/14/2023 1:45 PM EDT Height 162.6 cm (5' 4") 05/14/2023 1:45 PM EDT Body Mass Index 39.65 05/14/2023 1:45 PM EDT documented in this encounter Progress Notes * Kacie Stanley CRNP - 05/14/2023 2:14 PM EDT 37w4d Work is still making her pain worse. No other concerns. Baby is moving well. Denies regular contractions, bleeding, LOF. ASSESSMENT assessment with Non-stress Test completed on 05/14/2023 at 37.4weeks gestation for indication of obesity heart baseline: 125 bpm Variability: Moderate Decelerations: absent Accelerations: present Contractions: Present x1 NST start time: 1336 NST stop time: 1410 NST strip reviewed, interpreted, and approved by OB provider, ELAYNE Douglas . NST strip stored in clinic storage file documented in this encounter Nursing Notes * Rossy Reynolds RN - 05/14/2023 5:45 PM EDT Patient seen by [facility] Swatch Checker. Patient denies any questions or concerns. Rossy Reynolds RN documented in this encounter Plan of Treatment Upcoming Encounters Date Type Department Care Team (Late st Contact Info) Description 05/21/2023 1:30 PM EDT Office Visit Gynecology/Obstetrics Garett Brandons [address] [place] [address] Kacie Stanley CRNP [address] [place] [address] Maldonado, Non Stress Tests Blaise [address] [place] [address] 05/28/2023 1:30 PM EDT Office Visit Gynecology/Obstetrics Garett Brandons [address] [place] [address] Kacie Stanley CRNP [address] [place] [address] Maldonado, Non Stress Tests Blaise [address] [place] [address] Health Maintenance Due Date Last Done Comments [...] test documented in this encounter Care Teams Spray Gunner Relationship Specialty Start Date End Date Sita Jefferson DO [address] [place] [address] PCP - General Family Medicine 03/29/19 documented as of this encounter
--- OUTSIDE RECORDS SUMMARY | 2023-06-03 23:09 | External Medical Summary | Summary of Care ---
Author Name Unknown Organization [facility] Address [address] [facility] [place] [address] Phone [phone] Care Team Providers Care Chucking And Boring Machine Operator Name Role Phone Sita Jefferson DO Primary Care Provider [phone] Reason for Visit * Reason Comments Return Visit Encounter Details Date Type Department Care Team (Late st Contact Info) Description 05/14/2023 1:30 PM EDT Office Visit Gynecology/Obstetric s [facility] [address] [place] [address] Kacie Stanley CRNP [address] [place] [address] Joel, Non Stress Tests Blaise [address] [place] [address] Encounter for supervision of other normal in [...] . Suggested appt with with Veronique Elliott, cruise consultant. Problem Action Taken Date entered Entered [...] any current needs or questions 10/28/2019 Cassie Vidal, LILO 10/28/2019 Estimated Date of Delivery Comme nts [...] supplies and instructed on proper use. -Recommend historical guide consult. Lifestyle changes are also indicated including [...] money to get more. Never true 10/23/2022 [place] Depression Scale Answer Date Recorded [place] Depression Scale Total 3 04/11/2023 The thought [...] Gynecology/Obstetrics Garett Maldonado [address] [place] [address] Kacie Stanley CRNP [address] [place] [address] Bharti Maldonado Stress Tests Blaise [address] [place] [address] 05/28/2023 1:30 PM EDT Office Visit Gynecology/Obstetrics [facility] [address] [place] [address] Kacie Stanley CRNP [address] [place] [address] Maldonado, Non Stress Tests Blaise [address] [place] [address] Health Maintenance Due Date Last Done Comments Pneumococcal Vaccine: Pediatrics (0 to 5 Years) and At-Risk Patients (6 to 64 Years) (1 of 2 - PCV) 1999 COVID-19 Vaccine (1 - 2022-24 season) 2022 Influenza Vaccine (FLU [...] test documented in this encounter Care Teams Chucking And Boring Machine Operator Relationship Specialty Start Date End Date Sita Jefferson DO [address] [place] [address] PCP - General Family Medicine 03/29/19 documented as of this encounter
[2023-06-04] MEDS: LACTATED RINGER'S 1,000 ML IV PRN (07:50)
--- NOTE | 2023-06-04 10:05 | Obstetrical Progress Note ---
Date of Service June 04, 2023 Assessment & Plan (1) Prolonged gestation: Plan induction Day #2 Pt doing well FHR; CAT1 CTx Minimal VE; 1-2/thick/post Cervidil removed will start Pitocin Admission and Anticipated Discharge Date Admission Date: June 03, 2023 Results & Data Vital Signs (Past 12 Hours) Vital Signs Temp Pulse Resp BP Pulse Ox 06/04/23 09:58 79 99 06/04/23 09:53 77 100 06/04/23 09:34 75 98 06/04/23 09:29 66 98 06/04/23 09:24 67 98 06/04/23 09:19 69 99 06/04/23 09:14 70 100 06/04/23 09:09 72 99 06/04/23 09:04 80 99 06/04/23 08:59 74 99 06/04/23 08:54 74 100 06/04/23 08:49 76 100 06/04/23 08:44 74 100 06/04/23 08:39 73 99 06/04/23 08:34 81 99 06/04/23 08:29 81 100 06/04/23 08:24 78 99 06/04/23 08:19 77 100 06/04/23 08:14 79 98 06/04/23 08:09 73 99 06/04/23 08:04 76 98 06/04/23 07:59 79 98 06/04/23 07:54 71 96 06/04/23 07:49 73 99 06/04/23 07:06 36.4 C L 81 18 118/63 06/04/23 02:59 36.6 C 69 18 126/59 L 06/03/23 22:32 78 118/58 L 06/03/23 22:31 18 06/03/23 22:31 36.5 C 18
[2023-06-04] MEDS: OXYTOCIN 30 UNITS/NSS 30 UNITS/500 ML BAG IV PRN (11:35)
[2023-06-04] MEDS: PENICILLIN GK 6 MU in DEXTROSE 5% 250 ML IV ONE (12:15)
--- NOTE | 2023-06-04 16:06 | Labor Progress Brief Note ---
Date of Service June 04, 2023 Assessment & Plan Admission and Anticipated Discharge Date Admission Date: June 03, 2023 Physical Exam Genitourinary: Manual OB Exam: + cervical dilation 1 cm, + cervical effacement 50% and + station high OB Exam Monitor Tracing: + external FHT monitor used, + external uterine monitor used and + category I Results & Data Vital Signs (Past 12 Hours) Vital Signs Temp Pulse Resp BP Pulse Ox 06/04/23 16:03 87 99 06/04/23 15:58 81 98 06/04/23 15:53 85 98 06/04/23 15:48 75 99 06/04/23 15:43 64 96 06/04/23 15:38 97 06/04/23 15:38 64 06/04/23 15:38 65 114/59 L 06/04/23 15:33 63 97 06/04/23 15:28 87 97 06/04/23 15:24 72 94 06/04/23 15:23 70 94 06/04/23 15:18 72 97 06/04/23 15:13 64 97 06/04/23 15:08 66 99 06/04/23 15:03 72 96 06/04/23 14:58 68 99 06/04/23 14:53 58 L 94 06/04/23 14:52 67 94 06/04/23 14:48 63 95 06/04/23 14:47 71 93 06/04/23 14:43 66 95 06/04/23 14:41 75 94 06/04/23 14:38 96 06/04/23 14:38 65 06/04/23 14:38 64 113/58 L 06/04/23 14:33 61 96 06/04/23 14:28 75 97 06/04/23 14:23 67 96 06/04/23 14:18 65 96 06/04/23 14:13 66 96 06/04/23 14:08 67 98 06/04/23 14:03 67 95 06/04/23 13:58 65 96 06/04/23 13:53 69 97 06/04/23 13:48 67 96 06/04/23 13:43 68 96 06/04/23 13:38 68 99/55 L 96 06/04/23 13:33 67 97 06/04/23 13:28 67 96 06/04/23 13:27 69 94 04/17/24 13:23 68 94 06/04/23 13:22 68 94 06/04/23 13:18 69 95 06/04/23 13:15 67 94 06/04/23 13:13 65 95 06/04/23 13:08 67 94 06/04/23 13:03 95 06/04/23 13:03 66 06/04/23 13:03 64 94 06/04/23 12:58 67 95 06/04/23 12:57 67 94 06/04/23 12:53 67 95 06/04/23 12:51 67 94 06/04/23 12:48 65 96 06/04/23 12:43 64 97 06/04/23 12:39 62 107/52 L 06/04/23 12:38 64 95 06/04/23 12:33 58 L 97 06/04/23 12:28 61 97 06/04/23 12:23 77 98 06/04/23 12:18 74 98 06/04/23 12:13 77 99 06/04/23 12:08 73 100 06/04/23 12:03 72 99 06/04/23 11:58 69 99 06/04/23 11:53 81 99 06/04/23 11:48 70 99 06/04/23 11:43 76 99 06/04/23 11:38 65 123/76 97 06/04/23 11:33 66 98 06/04/23 11:28 78 96 06/04/23 11:23 71 96 06/04/23 11:18 75 98 06/04/23 11:13 73 99 06/04/23 11:08 71 97 06/04/23 11:03 72 98 06/04/23 10:58 69 97 06/04/23 10:53 72 98 06/04/23 10:48 77 97 06/04/23 10:43 73 97 06/04/23 10:38 74 98 06/04/23 10:33 75 97 06/04/23 10:28 83 97 06/04/23 10:23 68 98 06/04/23 10:18 70 98 06/04/23 10:13 67 99 06/04/23 10:08 82 98 06/04/23 10:03 69 99 06/04/23 09:58 79 99 06/04/23 09:53 77 100 06/04/23 09:34 75 98 06/04/23 09:29 66 98 06/04/23 09:24 67 98 06/04/23 09:19 69 99 06/04/23 09:14 70 100 06/04/23 09:09 72 99 06/04/23 09:04 80 99 06/04/23 08:59 74 99 06/04/23 08:54 74 100 06/04/23 08:49 76 100 06/04/23 08:44 74 100 06/04/23 08:39 73 99 06/04/23 08:34 81 99 06/04/23 08:29 81 100 06/04/23 08:24 78 99 06/04/23 08:19 77 100 06/04/23 08:14 79 98 06/04/23 08:09 73 99 06/04/23 08:04 76 98 06/04/23 07:59 79 98 06/04/23 07:54 71 96 06/04/23 07:49 73 99 06/04/23 07:06 36.4 C L 81 18 118/63
[2023-06-04] MEDS: PENICILLIN GK 3 MU in DEXTROSE 5% 100 ML IV PRN (16:16)
--- NOTE | 2023-06-04 18:10 | Labor Progress Brief Note ---
Date of Service June 04, 2023 Assessment & Plan Admission and Anticipated Discharge Date Admission Date: June 03, 2023 Physical Exam Genitourinary: Manual OB Exam: + cervical dilation 4 cm and 5 cm, + cervical effacement 60%, + station -2 and + amniotic fluid clear OB Exam Monitor Tracing: + external FHT monitor used, + external uterine monitor used, + category I and + normal FHT variability AROM with Amni-hook with scant clear fluid Results & Data Vital Signs (Past 12 Hours) Vital Signs Temp Pulse Resp BP Pulse Ox 06/04/23 18:05 79 92 06/04/23 18:02 66 91 06/04/23 18:00 76 99 06/04/23 17:43 94 H 100 06/04/23 17:40 82 122/76 06/04/23 17:38 81 98 06/04/23 17:33 82 98 06/04/23 17:32 96 H 92 06/04/23 17:28 93 H 96 06/04/23 17:23 88 100 06/04/23 17:18 73 98 06/04/23 17:13 75 98 06/04/23 17:08 70 97 06/04/23 17:03 75 99 06/04/23 16:58 93 H 100 06/04/23 16:53 68 98 06/04/23 16:48 89 96 06/04/23 16:43 72 100 06/04/23 16:40 86 108/59 L 06/04/23 16:38 78 98 06/04/23 16:33 98 H 99 06/04/23 16:28 76 99 06/04/23 16:23 85 98 06/04/23 16:19 65 109/59 L 06/04/23 16:18 66 98 06/04/23 16:08 74 98 06/04/23 16:03 87 99 06/04/23 15:58 81 98 06/04/23 15:53 85 98 06/04/23 15:48 75 99 06/04/23 15:43 64 96 06/04/23 15:38 97 06/04/23 15:38 64 06/04/23 15:38 65 114/59 L 06/04/23 15:33 63 97 06/04/23 15:28 87 97 06/04/23 15:24 72 94 06/04/23 15:23 70 94 06/04/23 15:18 72 97 06/04/23 15:13 64 97 06/04/23 15:08 66 99 06/04/23 15:03 72 96 06/04/23 14:58 68 99 06/04/23 14:53 58 L 94 06/04/23 14:52 67 94 06/04/23 14:48 63 95 06/04/23 14:47 71 93 06/04/23 14:43 66 95 06/04/23 14:41 75 94 06/04/23 14:38 96 06/04/23 14:38 65 06/04/23 14:38 64 113/58 L 06/04/23 14:33 61 96 06/04/23 14:28 75 97 06/04/23 14:23 67 96 06/04/23 14:18 65 96 06/04/23 14:13 66 96 06/04/23 14:08 67 98 06/04/23 14:03 67 95 06/04/23 13:58 65 96 06/04/23 13:53 69 97 06/04/23 13:48 67 96 06/04/23 13:43 68 96 06/04/23 13:38 68 99/55 L 96 06/04/23 13:33 67 97 06/04/23 13:28 67 96 06/04/23 13:27 69 94 06/04/23 13:23 68 94 06/04/23 13:22 68 94 06/04/23 13:18 69 95 06/04/23 13:15 67 94 06/04/23 13:13 65 95 06/04/23 13:08 67 94 06/04/23 13:03 95 06/04/23 13:03 66 06/04/23 13:03 64 94 06/04/23 12:58 67 95 06/04/23 12:57 67 94 06/04/23 12:53 67 95 06/04/23 12:51 67 94 06/04/23 12:48 65 96 06/04/23 12:43 64 97 06/04/23 12:39 62 107/52 L 06/04/23 12:38 64 95 06/04/23 12:33 58 L 97 06/04/23 12:28 61 97 06/04/23 12:23 77 98 04/17/24 12:18 74 98 06/04/23 12:13 77 99 06/04/23 12:08 73 100 06/04/23 12:03 72 99 06/04/23 11:58 69 99 06/04/23 11:53 81 99 06/04/23 11:48 70 99 06/04/23 11:43 76 99 06/04/23 11:38 65 123/76 97 06/04/23 11:33 66 98 06/04/23 11:28 78 96 06/04/23 11:23 71 96 06/04/23 11:18 75 98 06/04/23 11:13 73 99 06/04/23 11:08 71 97 06/04/23 11:03 72 98 06/04/23 10:58 69 97 06/04/23 10:53 72 98 06/04/23 10:48 77 97 06/04/23 10:43 73 97 06/04/23 10:38 74 98 06/04/23 10:33 75 97 06/04/23 10:28 83 97 06/04/23 10:23 68 98 06/04/23 10:18 70 98 06/04/23 10:13 67 99 06/04/23 10:08 82 98 06/04/23 10:03 69 99 06/04/23 09:58 79 99 06/04/23 09:53 77 100 06/04/23 09:34 75 98 06/04/23 09:29 66 98 06/04/23 09:24 67 98 06/04/23 09:19 69 99 06/04/23 09:14 70 100 06/04/23 09:09 72 99 06/04/23 09:04 80 99 06/04/23 08:59 74 99 06/04/23 08:54 74 100 06/04/23 08:49 76 100 06/04/23 08:44 74 100 06/04/23 08:39 73 99 06/04/23 08:34 81 99 06/04/23 08:29 81 100 06/04/23 08:24 78 99 06/04/23 08:19 77 100 06/04/23 08:14 79 98 06/04/23 08:09 73 99 06/04/23 08:04 76 98 06/04/23 07:59 79 98 06/04/23 07:54 71 96 06/04/23 07:49 73 99 06/04/23 07:06 36.4 C L 81 18 118/63
--- NOTE | 2023-06-04 20:06 | Delivery Summary ---
Vaginal Delivery Summary Date of Service June 04, 2023 Vaginal Delivery Summary live female LORRAINE over intact perineum with nuchal cord x1 reduced at delivery with delayed cord clamping and Apgars 8/9 weight pending. Placenta delivered spontaneously and intact. No tears. QBL 40 ml. Final sponge and instrument count are correct. Mom and baby stable.
[2023-06-04] MEDS ORDERED: HYDROCORTISONE ACETATE 25 MG SUPP PR PRN (20:38)
[2023-06-04] MEDS ORDERED: ACETAMINOPHEN 325 MG TAB PO PRN (20:38)
[2023-06-04] MEDS ORDERED: IBUPROFEN 600 MG TAB PO PRN (20:38)
[2023-06-04] MEDS ORDERED: OXYTOCIN 30 UNITS/NSS 30 UNITS/500 ML BAG IV PRN (20:38)
[2023-06-04] MEDS ORDERED: bisacodyL 10 MG SUPP PR PRN (20:38)
[2023-06-04] MEDS: BENZOCAINE 20% SPRY 85 APPLN/85 GM CAN EXT PRN (22:23)
[2023-06-04] MEDS: DIPHTHER/TETAN/PERTUS Vaccine (Tdap, Adol/Adult) 0.5mL IM ONE (22:23)
[2023-06-04] MEDS: DOCUSATE SODIUM 100 MG CAP PO SCH (22:23)
[2023-06-05 06:34] LABS: Hematocrit (blood only) 34.4 % (37.0-47.0); Hemoglobin 11.7 g/dl (12.0-16.0); Mean Corpuscular Hemoglobin 30.2 pg (25.0-34.0); Mean Corpuscular Volume 88.7 fL (80.0-100.0); Mean Platelet Volume 10.9 fL (9.4-12.4); Platelet Count 198 K/uL (130-400); RDW Coefficient of Variation 13.2 % (11.5-14.5); RDW Standard Deviation 42.6 fL (36.4-46.3); Red Blood Count 3.88 M/uL (4.20-5.40); White Blood Count 12.73 K/ul (4.8-10.8)
[2023-06-05] MEDS: FERROUS SULFATE 325 MG TAB PO SCH (07:55)
[2023-06-05] MEDS: PRENATAL VITAMIN 1 TAB PO SCH (07:55)
[2023-06-05] MEDS ORDERED: NON-FORMULARY MEDICATION (Prenat.Vits,Cal,Min-Iron-Folic Tablet) PO SCH (09:00)
--- NOTE | 2023-06-05 09:35 | Obstetrical Progress Note ---
Date of Service June 05, 2023 Assessment & Plan Admission and Anticipated Discharge Date Admission Date: June 03, 2023 Subjective Patient is seen and examined. She feels well, no complaints. Ambulating without dizziness Voiding without difficulty Tolerating regular diet with out N&V Bleeding is minimal No fever/ chills/ CP/ SOB/ N&V/ Leg pain Bottle feeding without problems Vital Signs Temp Pulse Pulse Resp BP BP Pulse Ox 06/05/23 08:00 37.2 C 68 16 115/73 99 06/05/23 04:00 36.6 C 82 18 134/76 06/04/23 23:45 36.4 C L 88 18 118/77 06/04/23 22:01 101 H 110/61 06/04/23 22:00 36.4 C L 18 O2 Del Method 06/05/23 08:00 Room Air 06/05/23 04:00 Room Air 06/04/23 23:45 06/04/23 22:01 06/04/23 22:00 Lab Results 06/03/23 06/05/23 Range/Units 15:56 05:40 WBC 7.50 12.73 H (4.8-10.8) K/ul RBC 3.90 L 3.88 L (4.20-5.40) M/uL Hgb 11.6 L 11.7 L (12.0-16.0) g/dl Hct 35.4 L 34.4 L (37.0-47.0) % MCV 90.8 88.7 (80.0-100.0) fL MCH 29.7 30.2 (25.0-34.0) pg MCHC 32.8 34.0 (32.0-36.0) g/dL RDW Std Deviation 42.9 42.6 (36.4-46.3) fL RDW Coeff of [place] 13.2 13.2 (11.5-14.5) % Plt Count 182 198 (130-400) K/uL MPV 10.3 10.9 (9.4-12.4) fL Blood Type O Positive Antibody Screen NEGATIVE PE: General: Alert, orientedx3, NAD Abd: soft, NT, fundus firm, below Umbilicus Perineum intact, Lochia rubra minimal Ext; NT, no edema AP: 28 yo s/p , ppd# 1 VSS Afebrile doing well Continue routine care All questions were answered Desires D/C home today Results & Data Vital Signs (Past 12 Hours) Vital Signs Temp Pulse Pulse Resp BP BP Pulse Ox 06/05/23 08:00 37.2 C 68 16 115/73 99 06/05/23 04:00 36.6 C 82 18 134/76 06/04/23 23:45 36.4 C L 88 18 118/77 06/04/23 22:01 101 H 110/61 06/04/23 22:00 36.4 C L 18 O2 Del Method 06/05/23 08:00 Room Air 06/05/23 04:00 Room Air 06/04/23 23:45 06/04/23 22:01 06/04/23 22:00
[2023-06-05] MEDS ORDERED: bisacodyL 5 MG TABEC PO SCH (20:00)
== END 2023-06-05 20:43 | disposition home or self-care (01) | DRG 807 ==
LOC: 4S1 14:57 → 4E2 06-04 23:49